=== PATIENT | male | born 1985 | race Caucasian/White ===

== ENCOUNTER 2021-09-14 11:21 | Outpatient (CLI) | payer MEDICAID, SELFPAY ==
[2021-09-16 11:08] LABS: Myeloperoxidase Ab IgG <0.2 U; Proteinase 3 Ab (PR3) <0.2 U
[2021-09-16 13:55] LABS: Angiotensin Converting Enzyme 67 U/L (16 - 85)
== END 2021-09-14 11:22 | disposition home or self-care (01) ==
LOC: LBO 11:22
PROVIDERS: PCP Otolaryngology; Visit Provider Otolaryngology
DX: J38.7 Other diseases of larynx (principal); R49.0 Dysphonia
CPT/HCPCS: 36415; 82164; 83516; 86140

== ENCOUNTER → 2021-12-08 11:54 | Outpatient (CLI) | payer MEDICAID, SELFPAY ==
--- NOTE | 2021-12-08 | DI.RAD_ITS ---
Exam(s) XR FOOT RT COMPLETE EXAM: XR FOOT RT COMPLETE CLINICAL HISTORY: 2ND METATARSAL FX-REVIEW FOR DISPLACEMENT, S92.301A. TECHNIQUE: 2D digital imaging was performed of the right foot. Three images were obtained. AP, obl ique and lateral views were obtained. COMPARISON: No exams were available for comparison FINDINGS: BONES: There is an oblique fracture through the medial aspect of the base of the 2nd metatarsal. The distal fracture is displaced 2 mm laterally. There is a question of a small fracture involving the medial aspect of the base of the 1st metatarsal. No bony destructive lesion is seen. JOINTS: No dislocation present. SOFT TISSUE: Normal. IMPRESSION: 1. Displaced oblique fracture through the medial aspect of the base of the 2nd metatarsal. 2. Question of a nondisplaced fracture involving the medial aspect of the base of the 1st metatarsal. 3. MRI may be considered for further evaluation for ligamentous injury. DATA REPOSITORY: RADIATION DOSE DELIVERED:
--- OUTSIDE RECORDS SUMMARY | 2021-12-08 11:58 | XMS_ITS | Encounter Summary ---
:1985 Author Organization [facility] Address [address] [place] [address] Care Team Providers Name Role Phone Jeanne Esparza ASSISTANT GOLF PROFESSIONAL Primary Care Provider Encounter Details Date Type Department Care Team Description 05/06/2020 Results Only [facility] - [facility] Antony Thomas, [facility] - [facility] [address] [place], [place] [id number] [place] [phone] (Wo rk) Social History Tobacco Use Types Packs/Day Years Used Date Current Every Day Smoker 1.5 12 Smokeless Tobacco: Never Used Alcohol Use Standard Drinks/Week Comments Yes 20 (1 standard drink = 0.6 oz pure alcoh ol) Sex Assigned at Date Recorded Not on file documented as of this encounter Functional Status Functional Status Response Date of Assessment Because of a physical, mental, or emotional condition, No 09/16/2015 does this person have difficulty doing errands alone such as visiting a doctor's office or shopping? Cognitive Status Response Date of Assessment Because of a physical, mental, or emotional condition, No 09/16/2015 does this person have serious difficulty concentrating, remembering, or making decisions? documented as of this encounter Plan of Treatment Upcoming Encounters Date Type Specialty Care Team Description 02/26/2022 Office Visit Urology Mp Echeverria PA -C 111 [facility] venue [facility], Madelin Adams, Level [address] [place], [place] [address] (Wo rk) documented as of this encounter Procedures Procedure Name Priority Date/Time Associated Comments Diagnosis COMPLETE BLOOD COUNT Routine 05/06/2020 5:30 Resu lts for this WITH DIFFERENTIAL EDT procedure are in (AUTO) the results section. MAGNESIUM Routine 05/06/2020 5:30 Results for this EDT procedure are i n the results section. PHENOBARBITAL Routine 05/06/2020 5:30 Results for this EDT procedure are i n the results section. COMPREHENSIVE Routine 05/06/2020 5:30 Results for this METABOLIC PANEL (CMP) EDT proced ure are in the results section. documented in this encounter Results (ABNORMAL) PHENOBARBITAL (05/06/2020 5:30 EDT) Phenobarbital 42.9 (A) 15.0 - 40.0 [facility] Comment: ug/mL MED CENTER LAB Test performed or referred by The [address] [address] Specimen Performing Organization Address City/State/ZIP Code Phon e Number [facility] [address] [place] [address] (ABNORMAL) MAGNESIUM (05/06/2020 5:30 EDT) Pathologist [facility] nature Magnesium 1.50 (L) 1.7 - 2.8 mg/dL [facility] Specimen Performing Organization Address City/[facility]/ZIP [facility] Phon e Number [facility] [address] [place] [address] (ABNORMAL) COMPREHENSIVE METABOLIC PANEL (CMP) (05/06/2020 5:30 EDT) ALBUMIN - [facility] 3.8 3.4 - 4.9 [facility] g/dL [facility] ALKALINE 75 38 - 126 U/L [facility] PHOSPHATASE - [facility] CENTER LAB BILIRUBIN TOTAL 1.2 0.2 - 1.3 [facility] mg/dL [facility] BUN - [facility] 7 (L) 10 - 26 mg/dL [facility] CALCIUM - [facility] 8.8 8.5 - 10.5 [facility] mg/dL [facility] Chloride 98 96 - 110 [facility] mmol/L [facility] CO2 Total 27 21 - 32 mEq/L [facility] CREATININE 0.67 0.66 - 1.25 [facility] mg/dL [facility] eGFR >60 [facility] Comment: MED CENTER LAB Chronic renal impairment is defined as GFR <60 Multiply result by 1.210 for patients . Anion Gap 9 0 - 18 [facility] GLUCOSE - [facility] 103 (H) 70 - 100 [facility] mg/dL [facility] Potassium 3.5 3.5 - 5.0 [facility] mEq/L [facility] Sodium 134 (L) 136 - 145 [facility] mEq/L [facility] TOTAL PROTEIN - 6.5 6.2 - 8.2 [facility] gm/dL [facility] SGOT/AST - [facility] 79 (H) 17 - 59 U/L [facility] SGPT/ALT - [facility] 36 0 - 50 U/L [facility] Specimen Performing Organization Address City/State/ZIP Code Phon e Number [facility] [address] [place] [address] (ABNORMAL) COMPLETE BLOOD COUNT WITH DIFFERENTIAL (AUTO) (05/06/2020 5:30 EDT) ABSOLUTE NEUTROPHIL 5.3 2.2 - 8.85 [facility] COUN - [facility] 10e3/uL CENTER LAB BASO # - [facility] 0.05 0.01 - 0.11 [facility] 10e/uL [place] [facility] BASO % - [facility] 1 0 - 2 % [facility] EOS # - [facility] 0.11 0.03 - 0.61 [facility] 10e3/ul [place] [facility] EOS % - [facility] 2 0 - 5 % [facility] GRAN % - [facility] 71.2 40 - 80 % [facility] HEMATOCRIT - [facility] 36.7 (L) 39.5 - 50.2 % [facility] HEMOGLOBIN - [facility] 12.8 (L) 13.8 - 17.3 [facility] g/dl [place] [facility] IG# - [facility] 0.04 0 - 0.7 10e3/uL [facility] IG% - [facility] 0.5 0 - 0.9 % [facility] LYMPH # - [facility] 0.9 (L) 1.09 - 3.3 [facility] 10e3/ul [place] [facility] LYMPH% - [facility] 12.0 (L) 20 - 40 % [facility] MEAN CORPUSCULAR HGB 35.1 (H) 27.6 - 33.0 pg [facility] ME D - [facility] CENTER LAB MEAN CORPUSCULAR HGB 34.9 32.8 - 36.4 [facility] CONC - [facility] g/dL CENTER LAB MEAN CELL VOLUME - 100.5 (H) 81 - 95 fl [facility] MONO # - [facility] 1.0 (H) 0.1 - 0.8 [facility] 10e3/uL [place] [facility] MONO% - [facility] 14.1 (H) 0 - 12 % [facility] PLATELET COUNT 107 (L) 141 - 377 [facility] 10e3/ul [place] [facility] RED BLOOD COUNT - 3.65 (L) 4.36 - 5.78 [facility] 10e6/ul [place] [facility] RED CELL DISTRI WIDTH 10.8 <14.2 % [facility] WHITE BLOOD COUNT - 7.4 4.0 - 10.4 [facility] 10e3/ul [place] [facility] Specimen Performing Organization Address City/State/ZIP Code Phon e Number [facility] [address] [place] [address] documented in this encounter Visit Diagnoses Not on filedocumented in this encounter Care Teams Dental Appliance Fixer Relationship Specialty Start Date End Date Jeanne Esparza NP PCP - General 11/28/19 [address] [place], [place] [address] documented as of this encounter
--- OUTSIDE RECORDS SUMMARY | 2021-12-08 11:58 | XMS_ITS | Encounter Summary ---
:1985 Author Organization [facility] Address [address] [place] [address] Care Team Providers Name Role Phone Jeanne Esparza NETTING WEAVER Primary Care Provider Encounter Details Date Type Department Care Team Description 05/06/2020 Lab Requisition [facility] Outr Resulting Lab, Pathology & Laboratory Provider [facility] [address] [place], [place] [address] Social History Tobacco Use Types Packs/Day Years [...] Visit Urology Mp Echeverria PA -C 111 [facility], [facility] Angie, [address] [place], [place] [address] (Wo rk) documented as of this encounter Procedures Procedure Name Priority Date/Time Associated Diagnosis Comme nts PHENOBARBITAL Routine 05/06/2020 5:30 EDT Results for this procedure are i n the results section . documented in this encounter Results (ABNORMAL) PHENOBARBITAL (05/06/2020 5:30 EDT) Pathologist Sig nature Phenobarbital 42.9 (H) 15.0 - 40.0 ug/mL [facility] Specimen Blood - Venous blood (substance) Performing Organization Address City/State/ZIP Code Phon e Number [facility] [address] [place] [address] SERVICES documented in this encounter Visit Diagnoses Not on filedocumented in this encounter Care Teams Handbook Writer Relationship Specialty Start Date End Date Jeanne Esparza NP PCP - General 11/28/19 [address] [place] [address] documented as of this encounter
--- OUTSIDE RECORDS SUMMARY | 2021-12-08 11:58 | XMS_ITS | Encounter Summary ---
:1985 Author Organization [facility] Address [address] [place] [address] Care Team Providers Name Role Phone Jeanne Esparza GUEST RELATIONS RECEPTIONIST Primary Care Provider Encounter Details Date Type Department Care Team Description 05/04/2020 Results Only [facility] Miladis Bush MD Adult Primary Care - [address] [address] [place], [place] [address] [phone] Social History Tobacco Use Types Packs/Day Years Used Date Never Assessed Sex Assigned at Date Recorded Not on [...] Visit Urology Mp Echeverria PA -C [address] [facility], Madelin Adams, [address] [place], [place] [address] (Wo rk) documented as of this encounter Procedures Procedure Name Priority Date/Time Associated Comments Diagnosis DRUGS OF ABUSE SCREEN, Routine 05/04/2020 16:15 R esults for this [facility] - [facility] EDT procedure are i n the results section. COMPLETE BLOOD COUNT Routine 05/04/2020 6:10 Resu lts for this WITH DIFFERENTIAL EDT procedure are in (AUTO) the results section. MAGNESIUM Routine 05/04/2020 6:10 Results for this EDT procedure are i n the results section. COMPREHENSIVE Routine 05/04/2020 6:10 Results for this METABOLIC PANEL (CMP) EDT proced ure are in the results section. documented in this encounter Results (ABNORMAL) DRUGS OF ABUSE SCREEN, URINE - [facility] (05/04/2020 16:15 EDT) AMPHETAMINES NEG NEG [facility] BARBITURATES,UR - POS (A) NEG [facility] BENZODIAZEPINES POS (A) NEG [facility] COCAINE,URINE - [facility] NEG NEG [facility] MAMP NEG NEG [place] (METHAMPHETAMINES - [facility] MARIJUANA,URINE - POS (A) NEG [facility] MTD (METHADONE) - NEG NEG [facility] OPIATES,URINE - [facility] NEG NEG [facility] OXY (OXYCODONE) - NEG NEG [facility] PCP (PHENCYCLIDINE) NEG NEG [place] - [facility] PROPOXYPHENE (PPX) - NEG NEG [facility] TRICYCLIC NEG NEG [place] ANTIDEPRESSANTS - Comment: [facility] Drug Class ?Cutoff Concent ration CENTER LAB Amphetamines (AMP) ?500 ng /ml Barbiturates (BAR) ?200 ng /ml Benzodiazepines (BZO) ? 150 ng/m l Cocaine (SHUKRI) ? 150 ng/ml Methamphetamine (mAMP) ?500 ng/m l Methadone (MTD) ? 200 n g/ml Opiates (OPI) ? 100 ng/ml Oxycodone (OXY) ? 100 n g/ml Phencyclidine (PCP) ?25 ng /ml Tetrahydrocannabinol (THC) ? 50 ng/ml Propoxyphene (PPX) ?300 ng /ml Tricyclic antidepressants (TCA) ? 300 ng/ml This is a screening assay only, intended for use in cl inical monitoring or management of patients. False positive o r false negative results can occur. If confirmation test ing is needed, please call the lab. Specimens are retained in the laboratory for 7 days. Specimen Performing Organization Address City/[facility]/ZIP [facility] Phon e Number [facility] [address] [place] [address] MAGNESIUM (05/04/2020 6:10 EDT) Pathologist Sig nature Magnesium 1.90 1.7 - 2.8 mg/dL [facility] Specimen Performing Organization Address [facility] Phon e Number [facility] [address] [place] [phone] (ABNORMAL) COMPREHENSIVE METABOLIC PANEL (CMP) (05/04/2020 6:10 EDT) ALBUMIN - [facility] 3.8 3.4 - 4.9 [facility] g/dL [facility] ALKALINE 75 38 - 126 U/L [facility] PHOSPHATASE [facility] BILIRUBIN TOTAL 1.6 (H) 0.2 - 1.3 [facility] mg/dL [facility] BUN - [facility] 4 (L) 10 - 26 mg/dL [facility] CALCIUM - [facility] 8.7 8.5 - 10.5 [facility] mg/dL [facility] Chloride 102 96 - 110 [facility] mmol/L [facility] CO2 Total 28 21 - 32 mEq/L [facility] CREATININE 0.76 0.66 - 1.25 [facility] mg/dL [facility] eGFR >60 [facility] Comment: [facility] LAB Chronic renal impairment is defined as GFR <60 Multiply result by 1.210 for patients . Anion Gap 7 0 - 18 [facility] GLUCOSE - [facility] 83 70 - 100 [facility] mg/dL [facility] Potassium 3.6 3.5 - 5.0 [facility] mEq/L [facility] Sodium 137 136 - 145 [facility] mEq/L [facility] TOTAL PROTEIN - 6.5 6.2 - 8.2 [facility] gm/dL [facility] SGOT/AST - [facility] 74 (H) 17 - 59 U/L [facility] SGPT/ALT - [facility] 44 0 - 50 U/L [facility] Specimen Performing Organization Address City/State/ZIP Code Phon e Number [facility] [address] [place] [address] (ABNORMAL) COMPLETE BLOOD COUNT WITH DIFFERENTIAL (AUTO) (05/04/2020 6:10 EDT) ABSOLUTE NEUTROPHIL 5.5 2.2 - 8.85 [facility] COUN - [facility] 10e3/uL CENTER LAB BASO # - [facility] 0.05 0.01 - 0.11 [facility] 10e/uL [place] [facility] BASO % - [facility] 1 0 - 2 % [facility] EOS # - [facility] 0.05 0.03 - 0.61 [facility] 10e3/ul [place] [facility] EOS % - [facility] 1 0 - 5 % [facility] GRAN % - [facility] 74.6 40 - 80 % [facility] HEMATOCRIT - [facility] 37.3 (L) 39.5 - 50.2 % [facility] HEMOGLOBIN - [facility] 12.7 (L) 13.8 - 17.3 [facility] g/dl [place] [facility] IG# - [facility] 0.05 0 - 0.7 10e3/uL [facility] IG% - [facility] 0.7 0 - 0.9 % [facility] LYMPH # - [facility] 0.8 (L) 1.09 - 3.3 [facility] 10e3/ul [place] [facility] LYMPH% - [facility] 11.3 (L) 20 - 40 % [facility] MEAN CORPUSCULAR HGB 34.8 (H) 27.6 - 33.0 pg [facility] ME D - [facility] CENTER LAB MEAN CORPUSCULAR HGB 34.0 32.8 - 36.4 [facility] CONC - [facility] g/dL CENTER LAB MEAN CELL VOLUME - 102.2 (H) 81 - 95 fl [facility] MONO # - [facility] 0.9 (H) 0.1 - 0.8 [facility] 10e3/uL [place] [facility] MONO% - [facility] 12.0 0 - 12 % [facility] PLATELET COUNT 97 (L) 141 - 377 [facility] 10e3/ul [place] [facility] RED BLOOD COUNT - 3.65 (L) 4.36 - 5.78 [facility] 10e6/ul [place] [facility] RED CELL DISTRI WIDTH 11.5 <14.2 % [facility] WHITE BLOOD COUNT - 7.4 4.0 - 10.4 [facility] 10e3/ul [place] [facility] Specimen Performing Organization Address City/State/[facility] Code Phon e Number [facility] [address] [place] [address] documented in this encounter Visit Diagnoses Not on filedocumented in this encounter Care Teams Pot Washer Relationship Specialty Start Date End Date Jeanne Esparza NP PCP - General 11/28/19 [address] [place] [address] documented as of this encounter
--- OUTSIDE RECORDS SUMMARY | 2021-12-08 11:58 | XMS_ITS | Encounter Summary ---
:1985 Author Organization [facility] Address [address] [place] [address] Care Team Providers Name Role Phone Jeanne Esparza RAILCAR SWITCHMAN Primary Care Provider Encounter Details Date Type Department Care Team Description 05/06/2020 Results Only Imaging [facility] - Aamir Thomas rt [facility] Cardiology Clin ic MD Vikas [address] [place] [address] [place], [place] [phone] (Wo rk) Social History Tobacco Use [...] Visit Urology Mp Echeverria PA -C 111 [facility], [facility], Level [address] [place], [place] [address] (Wo rk) documented as of this encounter Procedures Procedure Name Priority Date/Time Associated Diagnosis Comme nts EKG 12-LEAD 05/06/2020 7:47 EDT Results for this procedure are i n the results section . EKG 12-LEAD 05/06/2020 5:13 EDT Results for this procedure are i n the results section . documented in this encounter Results EKG 12-LEAD (05/06/2020 7:47 EDT) Specimen Narrative [facility] - 021 7:47 EDT ? [facility] ? Test Date: ?2020-05-06 07:47:30 Pat Name: ? TONE VILLARREAL ?Department: ?Room: ? 301 Gender: ? M ?Regulatory Compliance Manager: ?? TIB : ?1985 ? Requested By: Order Number: ?Reading MD: ?? Francis Villeda MD ? Measurements Intervals ?[place] ? Rate: ? 73 ? P: ?77 TX: ? 168 ?QRS: ?82 QRSD: ? 78 ? T: ?73 QT: ? 408 ? QTc: ?449 ? Interpretive Statements Normal sinus rhythm ST elevation, probably due to early repo larization or pericarditis. Borderline ECG Compared to ECG 05/06/2020 05:13:20 No significant changes Electronically Signed On 05-06-2020 14:42 :47 EDT by Francis Villeda MD [email or web address] Procedure Note Francis Villeda MD - 05/06/2020 [facility] Test Date: 2020-05-06 07:47:30 Pat Name: TONE VILLARREAL Department: Room: 301 Gender: M Regulatory Compliance Manager: JUAN : 1985 Requested By: Order Number: Reading MD: Francis Villeda MD Measurements Intervals [place] Rate: 73 P: 77 TX: 168 QRS: 82 QRSD: 78 T: 73 QT: 408 QTc: 449 Interpretive Statements Normal sinus rhythm ST elevation, probably due to early repo larization or pericarditis. Borderline ECG Compared to ECG 05/06/2020 05:13:20 No significant changes Electronically Signed On 05-06-2020 14:42 :47 EDT by Francis Villeda MD [email or web address] Performing Organization Address [facility]/State/ZIP Code Phon e Number [facility] [address] [place] [address] EKG 12-LEAD (05/06/2020 5:13 EDT) Specimen Narrative [facility] - 021 5:13 EDT ? [facility] ? Test Date: ?2020-05-06 05:13:20 Pat Name: ? TONE VILLARREAL ?Department: ?Room: ? 301 Gender: ? M ?Regulatory Compliance Manager: ?? SANA : ?1985 ? Requested By: Order Number: ?Reading : ?? Francis Villeda MD ? Measurements Intervals ?[place] ? Rate: ? 68 ? P: ?59 TX: ? 172 ?QRS: ?78 QRSD: ? 88 ? T: ?70 QT: ? 414 ? QTc: ?440 ? Interpretive Statements Normal sinus rhythm Early repolarization Normal ECG No previous ECG available for comparison Electronically Signed On 05-06-2020 9:57: 42 EDT by Francis Villeda MD [email or web address] Procedure Note Francis Villeda MD - 05/06/2020 [facility] Test Date: 2020-05-06 05:13:20 Pat Name: TONE VILLARREAL Department: Room: 301 Gender: M Regulatory Compliance Manager: SANA : 1985 Requested By: Order Number: Reading MD: Francis Villeda MD Measurements Intervals [place] Rate: 68 P: 59 TX: 172 QRS: 78 QRSD: 88 T: 70 QT: 414 QTc: 440 Interpretive Statements Normal sinus rhythm Early repolarization Normal ECG No previous ECG available for comparison Electronically Signed On 05-06-2020 9:57: 42 EDT by Francis Villeda MD [email or web address] Performing Organization Address City/State/ZIP Code Phon e Number [facility] [address] [place] [address] documented in this encounter Visit Diagnoses Not on filedocumented in this encounter Care Teams Oil And Gas Principal Relationship Specialty Start Date End Date Jeanne Esparza NP PCP - General 11/28/19 30 [place], [place] [id number] documented as of this encounter
--- OUTSIDE RECORDS SUMMARY | 2021-12-08 11:58 | XMS_ITS | Encounter Summary ---
:[address] [facility] Address [address] [place] [address] Care Team Providers Name Role Phone Jeanne Esparza VP TALENT MANAGEMENT Primary Care Provider Encounter Details Date Type Department Care Team Description 05/05/2020 Lab Requisition [facility] Outr Resulting Lab, Pathology & Laboratory Provider [facility] [address], [place] [address] Social History Tobacco Use Types Packs/Day Years [...] Echeverria PA -C [address] [facility], [facility] Angie, [address] [place], [place] [address] (Wo rk) documented as of this encounter Procedures Procedure Name Priority Date/Time Associated Diagnosis Comme nts PHENOBARBITAL Routine 05/05/2020 8:52 EDT Results for this procedure are i n the results section . documented in this encounter Results (ABNORMAL) PHENOBARBITAL (05/05/2020 8:52 EDT) Pathologist Sig nature Phenobarbital 45.5 (HH) 15.0 - 40.0 ug/mL [facility] Specimen Blood - Venous blood (substance) Performing Organization Address City/State/ZIP Code Phon e Number [facility] [address] [place] [address] SERVICES documented in this encounter Visit Diagnoses Not on filedocumented in this encounter Care Teams Millwright Helper Relationship Specialty Start Date End Date Jeanne Esparza NP PCP - General 11/28/19 [address] [place] [address] documented as of this encounter
--- OUTSIDE RECORDS SUMMARY | 2021-12-08 11:58 | XMS_ITS | Encounter Summary ---
:1985 Author Organization [facility] Address [address] [place] [address] Care Team Providers Name Role Phone Jeanne Esparza UX VISUAL DESIGNER Primary Care Provider Reason for Referral Consult (Routine/Next Available) - Closed Specialty Diagnoses / Procedures Referred By Contact Refer red To Contact Otolaryngology Diagnoses Laryngitis Gabe Chin, UX VISUAL DESIGNER [facility] [address] [place] [address] [address] [place] [address] [place] [address] Referral ID Status Reason Start Date Expiration Date Visits V isits Requested Authorized [id number] Closed Specialty 08/01/2021 1 1 Services Required Question Answer Reason for Request: Other Please specify: Evaluation and management Comments Patient presented to express care with a 9-day history of sore throat. 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 Would like him evaluated to rule out other vocal cord dysfunction s and possible nodule on his vocal cord. Reason for Visit Reason Comments Sore Throat Encounter Details Date Type Department Care Team Description 08/01/2021 Office Visit [facility] Acute Respiratory Gabe Chin La ryngitis (Primary Clinic UX VISUAL DESIGNER Dx) [address] [place] [address] [address] [place] [address] [address] [phone] [place], [place] [address] Social History Tobacco Use Types Packs/Day Years Used Date Current Every Day Smoker 1.5 12 Smokeless Tobacco: Never Used Alcohol Use Standard Drinks/Week Comments Not Currently 0 (1 standard drink = 0.6 oz pure alcoho l) one year sober Alcohol Habits Answer Date Recorded How often do you have a drink containing alcohol? Not asked How many drinks containing alcohol do you have on a Not aske d typical day when you are drinking? How often do you have six or more drinks on one Not asked occasion? Comment: one year sober 05/23/2021 Sex Assigned at Date Recorded Not on file documented as of this encounter Last Filed Vital Signs Vital Sign Reading Time Taken Comments Blood Pressure 102/62 08/01/2021 0944 EDT Pulse 67 08/01/2021 0944 EDT Temperature 36.7 ??C (98.1 ??F) 08/01/2021 0944 EDT Respiratory Rate 16 08/01/2021 0944 EDT Oxygen Saturation 100% 08/01/2021 0944 EDT Inhaled Oxygen Concentration - - Weight - - Height - - Body Mass Index - - documented in this encounter Functional Status Functional Status Response [...] making decisions? documented as of this encounter Patient Instructions Patient InstructionsGabe Chin NP - 08/01/2021 10:00 EDT Images from the original note were not included. Thank you for visiting [facility] in [place], [place] You were seen for a sore throat. There is no signs of an infection on your exam. As discussed at your visit I suspect you have a laryngitis. Plan of care as outlined below: -Supportive measures as below. I would decrease or stop smoking during the duration of your symptoms. -A referral has been placed to ENT for you. Singers are predisposed to certain conditions such as nodules on the vocal cords that can cause your symptoms. -As discussed at your visit, oral steroids are no longer indicated for the treatment of laryngitis. This can actually cause further damage to the vocal cords. Labs: If we collected any blood work from you, this can take up to 3 days to process. We generally only call if lab results are abnormal (No news is good news.). Consider signing up for [employer] for direct access to your lab results. We no longer routinely call for negative COVID-19 results. Radiology: If imaging was ordered for you to obtain after the visit, please call [facility] Radiology Scheduling at [phone] (Select Option 1). General follow-up: Please follow-up with your Primary Care Provider, [facility] Care, or the Emergency Department if you are not improving or symptoms are worsening after your visit. Nominate a Healthcare Provider who has provided you with EXCEPTIONAL care: [email or web address] MyChart Sign-Up: [email or web address] Patient Instructions Laryngitis: Care Instructions Your Care Instructions Laryngitis is an inflammation of the voice box (larynx) that causes your voice to become raspy or hoarse. Most of the time, laryngitis comes on quickly and lasts as long as 2 weeks. It is caused by overuse, irritation, or infection of the vocal cords inside the larynx. Some of the most common causes are a cold, the flu, or allergies. Loud talking, shouting, cheering, or singing also can cause laryngitis. Stomach acid that backs up into the throat also can make you lose your voice. Resting your voice and taking other steps at home can help you get your voice back. Follow-up care is a hamlin part of your treatment and safety. Be sure to make and go to all appointments, and call your doctor if you are having problems. It's also a good idea to know your test results and keep a list of the medicines you take. How can you care for yourself at home? ?? Rest your voice. You do not have to stop speaking, but use your voice as little as possible. Speak softly but do not whisper; whispering can bother your larynx more than speaking softly. Avoid talking on the telephone or trying to speak loudly. ?? Drink plenty of water to keep your throat moist. ?? Before you use cough and cold medicines, check the label. They may not be safe for young childrenor for people with certain health problems. ?? Try to keep stomach acid from backing up into your throat. Do not eat just before bedtime. Reducethe amount of coffee and alcohol you drink, and eat healthy foods. Taking lyoq-mld-giiupet acid reducers can help when these steps are not enough. In some cases, you may need prescription medicine. ?? Try not to clear your throat. This can cause more irritation of your larynx. Take an pgnm-puh-kfsjukc cough suppressant (if your doctor recommends it) if you have a dry cough that does not produce mucus. ?? Use saline (saltwater) nasal washes to help keep your nasal passages open and wash out mucus and bacteria. You can buy saline nose drops at a grocery store or drugstore. Or, you can make your own athome by mixing ?? teaspoon salt, 1 cup water (at room temperature), and ?? teaspoon baking soda. If you make your own, fill a bulb syringe with the solution, insert the tip into your nostril, and squeeze gently. Blow your nose. ?? Follow your doctor's directions for treating the condition that caused you to lose your voice. Ifyour doctor prescribed antibiotics, take them as directed. Do not stop taking them just because you feel better. You need to take the full course of antibiotics. ?? Do not smoke or allow others to smoke around you. If you need help quitting, talk to your doctor about stop-smoking programs and medicines. These can increase your chances of quitting for good. When should you call for help? Call 911 anytime you think you may need emergency care. For example, call if: ? You have trouble breathing. Call your doctor now or seek immediate medical care if: ? You have new or worse pain. ? You have trouble swallowing. Watch closely for changes in your health, and be sure to contact your doctor if: ? You do not get better as expected. Where can you learn more? Go to https://www.healthCrisp.net/uvTerraplay Systemsealth or log into your [employer] account at https://agámi Systems.Collect.org Enter A905 in the search box to learn more about Laryngitis: Care Instructions. Current as of: October 29, 2020?Content Version: 13.2 ?? [employer]shine. Care instructions adapted under license by [facility]. If you have questions about a medical condition or this instruction, always ask your healthcare professional. [employer] disclaims any warranty or liability for your use of this information. documented in this encounter Progress Notes Gabe Chin NP - 08/01/2021 1000 EDT [facility] Express Care Chief Complaint(s): Sore Throat HPI: Shelley Villarreal is a 36 y.o. year-old male who presents to Express Care for for 9- day history of throat soreness. 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 He has been having difficulty with reaching high notes. 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 Symptoms are most pronounced after he finishes his singing gigs. He is concerned about possible strep or laryngitis. He has no recent history of either. He has not had his tonsils removed. He has not done anything specific to treat his symptoms. He has never been treated by ENT. He has no other symptoms. I have reviewed current problem list and current medications. ROS: No fever, chills, chest pain, shortness of breath, abdominal pain, rashes. Social History Tobacco Use ??? Smoking status: Current Every Day Smoker Packs/day: 1.50 Years: 12.00 Pack years: 18.00 ??? Smokeless tobacco: Never Used Substance Use Topics ??? Alcohol use: Not Currently Comment: one year sober History obtained from patient, unless otherwise noted. Objective: Examination: Vitals: BP 102/62 (BP Cuff Location: Left arm, BP Patient Position: Sitting, BP Cuff Sizes: Adult, regular) Pulse 67 Temp 36.7 ??C (98.1 ??F) (Oral) Resp 16 SpO2 100% There is no height or weight on file to calculate BMI. Physical Exam Gen: No acute distress. Pleasant. Sitting on exam table reading about opioids. Cardiac: S1/S2, no murmurs rubs or gallops, regular rate Pulmonary: Normal work of breathing, clear to auscultation bilaterally in all lung thomas, voice sounds hoarse HEENT: NC/AT, [place], conjunctiva not injected, sclera not injected, right ear: Normal (TM intact, not injected, no effusion), left ear: Normal (TM intact, not injected, no effusion), uvula midline, posterior oral pharynx mildly erythematous but not edematous, tonsils 1+???no exudate, tongue clear, no abnormal drainage from ears, eyes, nose, neck supple, no LAD Skin: [place] warm and dry Data reviewed with patient (past results): Reviewed active problem list, allergies, chart review forprevious visits pertinent to this 1. Assessment/ Plan: 36 y.o. year-old male with sore throat for the last 9 days. I primarily suspect a laryngitis. There is no focal source of infection identified and given focal nature of symptoms there is a low index ofsuspicion for an infectious process. DDx: Vocal cord dysfunction, nodules on the vocal cords??? these cannot be ruled out at this visit. Referral placed to ENT. Discussed with patient symptom management to include resting his voice, staying hydrated, drinking warm tea or water with honey, throat lozenges. Plan of care as outlined below and in AVS. Patient verbalized agreement and understanding of plan ofcare. Diagnoses and all orders for this visit: Laryngitis - Amb Consult/Follow Up ENT; Future Patient education: Discussed with patient during visit and provided in AVS as applicable. Follow-up: RTC, PCP, or ED if symptoms do not improve and patient is concerned. This note was prepared using voice recognition software and the EMR. There may be inadvertent errorsand omissions. Chica Gonzalez - 08/01/2021 1000 EDT CC/HPI: Patient presents with sore throat x 9 days. 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 Covid Screening: In the last 72 hours, has the patient had: New or unusual cough, shortness of breath, new nasal congestion, sore throat, fever, chills, body aches, or new loss of taste or smell without a reasonable alternative diagnosis*? (If yes, assign to ARC) In the past 10 days, has the patient had a positive Covid test OR a confirmed close Covid exposure (<6ft for > 15mins in 24hr period)? (if yes, assign to ARC, regardless of vaccination status) NO Is the patient fully Covid vaccinated? Approximate date of last dose? Had Covid 1 month ago. *may be determined by RN or in discussion with available provider (FLOTATION OPERATOR's and CCA's can defer to Charge Nurse to complete triage when appropriate) PCP: Jeanne Esparza documented in this encounter Plan of Treatment Upcoming Encounters Date Type Specialty Care Team Description 02/26/2022 Office Visit Urology Mp Echeverria PA -C [address] [place] [address], [facility] [address] [place], [place] [address] (Wo rk) Scheduled Orders Name Type Priority Associated Diagnoses Order S chedule POCT RAPID STREP Point of Care Routine Laryngitis Ordered: 0 08/01/2021 SCREEN Testing Scheduled Referrals Name Type Priority Associated Order Schedule Diagnoses AMB Outpatient Referral Routine/Next Laryngitis Expected : CONS/FOLLOW Available 08/31/2021 UP E[facility] (Approximate), Expires: 08/01/2022 documented as of this encounter Visit Diagnoses Diagnosis Laryngitis - Primary Acute laryngitis, without mention of obs truction documented in this encounter Historical Medications This list may reflect changes made after this encounter. Medication Sig Dispensed Refills Start Date End Date Multivitamins with Minerals Take 1 Tablet by 0 tablet tablet mouth daily. sildenafiL (REVATIO) 20 mg TAKE 1 TO 5 TABLETS 0 07/13/2021 tablet BY MOUTH 30 MINUTES PRIOR TO NEED. MAXIMUM DAILY DOSE IS 3 TABLETS IN 24 HOURS added in this encounter Care Teams Manufacturing Recruiter Relationship Specialty Start Date End Date Jeanne Esparza NP PCP - General 11/28/19 [address] [place] [address] documented as of this encounter
--- OUTSIDE RECORDS SUMMARY | 2021-12-08 11:58 | XMS_ITS | Encounter Summary ---
:1985 Author Organization [facility] Address [address] [place] [address] Care Team Providers Name Role Phone Jeanne Esparza INSURANCE DEFENSE PARALEGAL Primary Care Provider Encounter Details Date Type Department Care Team Description 05/07/2020 Results Only [facility] - [facility] Antony Thomas, [facility] - [facility] [address] [place], [place] [address] [place] [phone] (Wo rk) Social History Tobacco Use [...] Visit Urology Mp Echeverria PA -C [address] [facility] venue [facility], Madelin Adams, [address] [place], [place] [address] (Wo rk) documented as of this encounter Procedures Procedure Name Priority Date/Time Associated Comments Diagnosis COMPLETE BLOOD COUNT Routine 05/07/2020 6:20 Resu lts for this WITH DIFFERENTIAL EDT procedure are in (AUTO) the results section. MAGNESIUM Routine 05/07/2020 6:20 Results for this EDT procedure are i n the results section. BASIC METABOLIC PANEL Routine 05/07/2020 6:20 Res ults for this (BMP) EDT procedure are i n the results section. documented in this encounter Results (ABNORMAL) COMPLETE BLOOD COUNT WITH DIFFERENTIAL (AUTO) (05/07/2020 6:20 EDT) ABSOLUTE NEUTROPHIL 3.2 2.2 - 8.85 [facility] COUN - [facility] 10e3/uL [facility] BASO # - [facility] 0.05 0.01 - 0.11 [facility] 10e/uL [facility] BASO % - [facility] 1 0 - 2 % [facility] EOS # - [facility] 0.09 0.03 - 0.61 [facility] 10e3/ul [facility] EOS % - [facility] 2 0 - 5 % [facility] GRAN % - [facility] 57.1 40 - 80 % [facility] HEMATOCRIT - [facility] 37.1 (L) 39.5 - 50.2 % [facility] HEMOGLOBIN - [facility] 12.6 (L) 13.8 - 17.3 [facility] g/dl [facility] IG# - [facility] 0.05 0 - 0.7 10e3/uL [facility] IG% - [facility] 0.9 0 - 0.9 % [facility] LYMPH # - [facility] 1.1 1.09 - 3.3 [facility] 10e3/ul [facility] LYMPH% - [facility] 20.2 20 - 40 % [facility] MEAN CORPUSCULAR HGB 34.2 (H) 27.6 - 33.0 pg [facility] ME D - [facility] CENTER [facility] MEAN CORPUSCULAR HGB 34.0 32.8 - 36.4 [facility] CONC - [facility] g/dL [facility] MEAN CELL VOLUME - 100.8 (H) 81 - 95 fl [facility] MONO # - [facility] 1.1 (H) 0.1 - 0.8 [facility] 10e3/uL [facility] MONO% - [facility] 19.3 (H) 0 - 12 % [facility] PLATELET COUNT 137 (L) 141 - 377 [facility] 10e3/ul [facility] RED BLOOD COUNT - 3.68 (L) 4.36 - 5.78 [facility] 10e6/ul [facility] RED CELL DISTRI WIDTH 11.0 <14.2 % [facility] LAB WHITE BLOOD COUNT - 5.6 4.0 - 10.4 [facility] 10e3/ul [facility]ENTER LAB Specimen Performing Organization Address City/[facility]/ZIP Code Phon e Number [facility] [address] [place] [address] MAGNESIUM (05/07/2020 6:20 EDT) Pathologist Sig nature Magnesium 1.70 1.7 - 2.8 mg/dL [facility] R LAB Specimen Performing Organization Address [facility] Phon e Number [facility] [address] [place] [address] (ABNORMAL) BASIC METABOLIC PANEL (BMP) (05/07/2020 6:20 EDT) BUN - [facility] 5 (L) 10 - 26 mg/dL [facility] CALCIUM - [facility] 8.8 8.5 - 10.5 [facility] mg/dL [facility] Chloride 99 96 - 110 [facility] mmol/L [facility] CO2 Total 28 21 - 32 mEq/L [facility] CREATININE 0.73 0.66 - 1.25 [facility] mg/dL [facility] eGFR >60 [facility] Comment: [facility] Chronic renal impairment is defined as GFR <60 Multiply result by 1.210 for patients . Anion Gap 7 0 - 18 [facility] GLUCOSE - [facility] 90 70 - 100 mg/dL [facility] Potassium 3.7 3.5 - 5.0 [facility] mEq/L [facility] Sodium 134 (L) 136 - 145 [facility] mEq/L [facility] LAB Specimen Performing Organization Address City/[facility] Phon e Number [facility] [address] [place] [address] documented in this encounter Visit Diagnoses Not on filedocumented in this encounter Care Teams Fig Washer Relationship Specialty Start Date End Date Jeanne Esparza NP PCP - General 11/28/19 [address] [place] [address] documented as of this encounter
--- OUTSIDE RECORDS SUMMARY | 2021-12-08 11:58 | XMS_ITS | Encounter Summary ---
:1985 Author Organization [facility] Address [address] [place] [address] Care Team Providers Name Role Phone Jeanne Esparza AIRPLANE COVER MAKER Primary Care Provider Reason for Visit Reason Onset Date Comments COVID-19 08/07/2021 Encounter Details Date Type Department Care Team Description 08/07/2021 Telephone UVN [facility] Lencho Renee MD COVID-[address] [place] [address] [place] [phone] (Wo rk) Social History Tobacco Use Types [...] making decisions? documented as of this encounter Miscellaneous Notes Telephone Encounter - Sara Stacy - 08/07/2021 1640 EDT COVID TEST REQUIRED Please order COVID test for this patient INTERNAL ORDER TO [facility] ANTERIOR NARES Patient advised to go to [facility] lab 3 days prior to their appointment with ENT. Date patient needs to have COVID test done: 09/19/21 Appt Reason: Laryngitis Appt Date 09/23/[address] Sotelo Notified patient of the need to Quarantine once test is complete until the appointment Patient confirmed to quarantine and call if any sx's documented in this encounter Plan of Treatment Upcoming Encounters Date Type Specialty Care Team Description 02/26/2022 Office Visit Urology Mp Echeverria PA -C [address] [facility], [facility], [address] [place], [place] [phone] (Wo rk) documented as of this encounter Results COVID-19 TESTING (09/19/2021 10:06 EDT) COVID-19 rt-PCR Negative Negative [facility] Result Comment: [facility] This test has not been FDA c leared or approved. This test has been authorized by FDA under an EUA for use by authorized laboratories. This test has been authorized only for detection of nucleic acid fro m 2019-nCoV, not for any oth er viruses or pathogens. This test is only authorized for the duration of the declaration that circumstances exist justifying the authorization of emergency use of in vitro d iagnostic tests for detectio n and/or diagnosis of 2019-nCoV under section 564(b)(1) of Act, 21 U.S.C ?? 360bbb-3(b) (1), unless the authorization is terminated or revoked sooner. Performed on the [employer] GeneXpert Instrument The 2019 novel coronavirus (SARS-CoV-2) target nucleic acids are not detected. Performing Lab Cepheid GeneXpert [facility] Specimen Swab - Anterior nares Performing Organization Address City/State/ZIP Code Phon e Number [facility] [address] [place] [address] documented in this encounter Visit Diagnoses Diagnosis Pre-procedure lab exam - Primary Pre-procedural laboratory examination documented in this encounter Care Teams Senior Benefits Manager Relationship Specialty Start Date End Date Jeanne Esparza NP PCP - General 11/28/19 [address] [place] [address] documented as of this encounter
--- OUTSIDE RECORDS SUMMARY | 2021-12-08 11:58 | XMS_ITS | Encounter Summary ---
:1985 Author Organization [facility] Address [address] [place] [address] Care Team Providers Name Role Phone Jeanne Esparza LAUNDRY AGENT Primary Care Provider Reason for Visit Reason Comments Constipation pt reports i feel like im i ncredibly constipated. it started 2 weeks ago and its getting to the p oint i didnt know what to do anymore has not tried any medications at home. Encounter Details Date Type Department Care Team Description 05/23/2021 Emergency [facility] - Tim Strickland MD Constipation, [facility] Emergency [address] [facility] unspecified constipation Department [place], [place] type (Primary Dx) [address] [facility] [address] [place] [address] [phone] Social History Tobacco Use Types Packs/Day Years [...] Sign Reading Time Taken Comments Blood Pressure 137/85 05/23/2021 0825 EDT Pulse 82 05/23/2021 0825 EDT Temperature - - Respiratory Rate 18 05/23/2021 0825 EDT Oxygen Saturation 100% 05/23/2021 0825 EDT Inhaled Oxygen Concentration - - Weight 70.3 kg (155 lb) 05/23/2021 08 EDT Height 193 cm (6' 4) 05/23/2021820 EDT Body Mass Index 18.87 05/23/2021 08 EDT documented in this encounter Functional Status Functional [...] making decisions? documented as of this encounter Discharge Instructions InstructionsMoNir gomez MD - 05/23/2021 You were seen in the ED for constipation and rectal pain. Drink one half the bottle of magnesium citrate when you return home. If you do not have a bowel movement within 2 hours finish the bottle. Then take MiraLAX 17 g daily to keep your stools soft so your rectal area can heal. Follow-up with your PCP in about 1 week. Return to the emergency department for any worsening symptoms. AttachmentsThe following attachments cannot be sent through Care Everywhere. Constipation (Uzbek)documented in this encounter Discharge Disposition Disposition Code Departure Means Destination Home or Self Retirement documented in this encounter ED Notes Nir Strickland MD - 05/23/2021 1008 EDT Emergency Department Visit Assessment and ED Course 35-year-old male presents to the ED concerned for constipation and rectal pain. On exam he has no significant abdominal pain or tenderness. Rectal exam without any external evidence of the source of pain such as perianal abscess, fissure or hemorrhoids. He does have considerable pain with digital rectal exam so a fissure is possible but he would not tolerate anoscopy at this time. Abdominal x-rays show moderate stool burden, most of which is more proximal than would be likely to be helped by an enema. Patient was discharged home with a bottle of magnesium citrate. Stressed the importance of keepinghis stool soft using daily MiraLAX after this. He will follow up with his PCP. Final diagnoses: Constipation, unspecified constipation type Disposition: Discharged Chief complaint: constipation and rectal pain HPI Shelley Villarreal is a 35 y.o. male who presents to the ED for constipation and rectal pain. For about 2weeks the patient has felt like he is not having regular bowel movements. He can sometimes pass small amounts of stool but does not think he is completely emptying. He is having increasingly severe rectal and anal pain, especially when he tries to have a bowel movement. He has not had any blood in hisstools. No fever. Has not taken any stool softeners or laxatives at home. Occasional lower abdominalpain. No vomiting. History was provided by: Patient Patient's pertinent PMH, FH, SH were reviewed and edited as necessary. Review of Systems Constitutional: Negative for chills and fever. HENT: Negative for congestion. Eyes: Negative for redness. Respiratory: Negative for shortness of breath. Cardiovascular: Negative for chest pain. Gastrointestinal: Positive for constipation. Negative for abdominal pain, nausea and vomiting. Genitourinary: Negative for dysuria. Musculoskeletal: Negative for neck pain. Skin: Negative for rash. Neurological: Negative for speech change. Psychiatric/Behavioral: Negative for hallucinations. Physical Exam BP 137/85 Pulse 82 Resp 18 Ht (!) 193 cm (76) Wt 70.3 kg (155 lb) SpO2 100% BMI 18.87 kg/m?? A medical screening exam was performed. Physical Exam Vitals and nursing note reviewed. Constitutional: General: He is not in acute distress. Appearance: He is well-developed and well-nourished. HENT: Nose: Nose normal. No nasal discharge. Mouth/Throat: Mouth: Mucous membranes are moist. Pharynx: Oropharynx is clear. Eyes: Extraocular Movements: EOM normal. Conjunctiva/sclera: Conjunctivae normal. Pupils: Pupils are equal, round, and reactive to light. Cardiovascular: Rate and Rhythm: Normal rate and regular rhythm. Heart sounds: Normal heart sounds. Pulmonary: Effort: Pulmonary effort is normal. No respiratory distress. Breath sounds: Normal breath sounds. Abdominal: General: Bowel sounds are normal. Palpations: Abdomen is soft. Tenderness: There is no abdominal tenderness. Comments: Rectal exam with no external hemorrhoids, anal fissure or areas of swelling/redness. Digital exam with no palpable stool in the rectal vault and no blood. Considerable pain with digital rectal exam. Musculoskeletal: General: Normal range of motion. Cervical back: Normal range of motion and neck supple. Skin: General: Skin is warm and dry. Neurological: Mental Status: He is alert and oriented to person, place, and time. Cranial Nerves: No cranial nerve deficit. Psychiatric: Mood and Affect: Mood and affect normal. Imaging obtained was reviewed and independently interpreted. Procedures Procedures documented in this encounter Plan of Treatment Upcoming Encounters Date Type Specialty Care Team Description 02/26/2022 Office Visit Urology Mp Echeverria PA -C [address] [facility] [place], [address] [place], [place] [address] (Wo rk) documented as of this encounter Procedures Procedure Name Priority Date/Time Associated Diagnosis Comme nts XR ABDOMEN 2 VIEWS STAT 05/23/2021 9:30 EDT Re sults for this procedure are i n the results section. documented in this encounter Results XR ABDOMEN 2 VIEWS (05/23/2021 9:30 EDT) Anatomical Region Laterality Modality Body Radio Fluoroscopy Specimen Impressions [facility] - 05/23/2021 9:44 EDT Moderate constipation. THIS DOCUMENT HAS BEEN ELECTRONICALLY SI GNED BY CHANNING MEJIA MD FOR ANY QUESTIONS OR CONCERNS REGARDING THIS REPORT PLEASE CALL [facility] AT [phone] [facility] - 05/23/2021 9:44 EDT PROCEDURE INFORMATION: Exam: XR Abdomen Exam date and time: 05/23/2021 9:18 AM Age: 35 years old Clinical indication: Constipation TECHNIQUE: Imaging protocol: XR of the abdomen. Views: 2 Views. Upright and supine views . COMPARISON: CR CHEST-SINGLE VIEW 03/05/2020 17:51 FINDINGS: Gastrointestinal tract: No small bowel d ilatation is present. There is a relatively large amount of ga s and fecal material throughout the colon. Intraperitoneal space: Normal. No free a ir. Bones/joints: Unremarkable for age. Other findings: There is no soft tissue mass or abnormal calcification. Procedure Note Channing Mejia MD - 05/23/2021 PROCEDURE INFORMATION: Exam: XR Abdomen Exam date and time: 05/23/2021 9:18 AM Age: 35 years old Clinical indication: Constipation TECHNIQUE: Imaging protocol: XR of the abdomen. Views: 2 Views. Upright and supine views . COMPARISON: CR CHEST-SINGLE VIEW 03/05/2020 17:51 FINDINGS: Gastrointestinal tract: No small bowel d ilatation is present. There is a relatively large amount of ga s and fecal material throughout the colon. Intraperitoneal space: Normal. No free a ir. Bones/joints: Unremarkable for age. Other findings: There is no soft tissue mass or abnormal calcification. IMPRESSION Moderate constipation. THIS DOCUMENT HAS BEEN ELECTRONICALLY SI GNED BY CHANNING MEJIA MD FOR ANY QUESTIONS OR CONCERNS REGARDING THIS REPORT PLEASE CALL [facility] AT [phone] Performing Organization Address City/State/ZIP Code Phon e Number [facility] documented in this encounter Visit Diagnoses Diagnosis Constipation, unspecified constipation t ype - Primary documented in this encounter Administered Medications Inactive Administered Medications - up to 3 most recent administrations Medication Order MAR Action Action Date Dose Rate Site magnesium citrate solution 296 mL Given 05/23/2021 10:07 EDT 296 mL 296 mL, oral, Once (NO Time Specified), 1 dose, Starting on 05/23/21 at 0953, Until 05/23/21 at 1007, Routine documented in this encounter Discontinued Medications Medication Sig Discontinue Reason Start Date End Date diazePAM (VALIUM) 10 mg Take 1 Tab by mouth 2 times daily. Day one and 2- 10 mg every 6 hours 05/09/2016 05/23/2021 tablet Day 3 and 4- 10 mg every 8 hours Day 5 and 6-10 mg twice a day Daily Max: 20 mg betamethasone Apply twice daily 12/10/2019 2 dipropionate 0.05 % for 2 weeks. Apply cream to penis in area of foreskin narrowing documented as of this encounter Active and Recently Administered Medications Times are shown in EDT. Scheduled Medication Order 05/21/2021 05/22/2021 05/23/2021 magnesium citrate solution 296 mL (COMPLETED) 1007 (Given - Provider: Capri Davis RN) 296 mL, oral, ONCE, 1 dose, Starting on 05/23/21 at 0953, Until Discontinued, Routine documented in this encounter Orders Medications Ordered That Might Not Have Count Last Ord ered Date First Ordered Date Been Administered magnesium citrate solution 296 mL 1 05/23/2021 documented in this encounter Care Teams Warehouse Supervisor Relationship Specialty Start Date End Date Jeanne Esparza, ADAL PCP - General 11/28/19 [address] [place] [address] documented as of this encounter
--- OUTSIDE RECORDS SUMMARY | 2021-12-08 11:58 | XMS_ITS | Encounter Summary ---
:1985 Author Organization [facility] Address [address] [place] [address] Care Team Providers Name Role Phone Jeanne Esparza ROUTE CDL DRIVER Primary Care Provider Encounter Details Date Type Department Care Team Description 05/05/2020 Results Only Imaging [facility] - Aamir Thomas rt [facility] Cardiology Clin ic MD Vikas [address] [place] [address] [place], [place] [phone] (Wo rk) Social History Tobacco Use [...] Visit Urology Mp Echeverria PA -C [address] [facility], Level [address] [place], [place] [address] (Wo rk) documented as of this encounter Procedures Procedure Name Priority Date/Time Associated Diagnosis Comme nts EKG 12-LEAD 05/05/2020 17:13 EDT Results for this procedure are i n the results section . documented in this encounter Results EKG 12-LEAD (05/05/2020 17:13 EDT) Specimen Narrative [facility] - 021 17:13 EDT ? [facility] ? Test Date: ?2020-05-05 17:13:45 Pat Name: ? TONE VILLARREAL ?Department: ?Room: ? 301 Gender: ? M ?Director Orange: ?? DKK : ?1985 ? Requested By: Order Number: ?Reading MD: ?? Francis Villeda MD ? Measurements Intervals ?[place] ? Rate: ? 62 ? P: ?63 OK: ? 186 ?QRS: ?69 QRSD: ? 98 ? T: ?63 QT: ? 448 ? QTc: ?454 ? Interpretive Statements Normal sinus rhythm Early repolarization Normal ECG No previous ECG available for comparison Electronically Signed On 05-06-2020 10:00 :12 EDT by Francis Villeda MD [email or web address] [email or web address] Procedure Note Francis Villeda MD - 05/06/2020 [facility] Test Date: 2020-05-05 17:13:45 Pat Name: TONE VILLARREAL Department: Room: 301 Gender: M Director Orange: NIKITA : 1985 Requested By: Order Number: Reading MD: Francis Villeda MD Measurements Intervals [place]dwell Rate: 62 P: 63 OK: 186 QRS: 69 QRSD: 98 T: 63 QT: 448 QTc: 454 Interpretive Statements Normal sinus rhythm Early repolarization Normal ECG No previous ECG available for comparison Electronically Signed On 05-06-2020 10:00 :12 EDT by Francis Villeda MD [email or web address] [email or web address] Performing Organization Address City/State/ZIP Code Phon e Number [facility] [address] [place] [address] documented in this encounter Visit Diagnoses Not on filedocumented in this encounter Care Teams Color Checker Roving Or Yarn Relationship Specialty Start Date End Date Jeanne Esparza NP PCP - General 11/28/19 [address] [place] [address] documented as of this encounter
--- OUTSIDE RECORDS SUMMARY | 2021-12-08 11:58 | XMS_ITS | Encounter Summary ---
:1985 Author Organization [facility] Address [address] [place] [address] Care Team Providers Name Role Phone Jeanne Esparza ATHLETIC FIELD CUSTODIAN Primary Care Provider Encounter Details Date Type Department Care Team Description 05/05/2020 Results Only [facility] Antony Thomas, [facility] [address] [place] [address] [place] [address] (Wo rk) Social History Tobacco Use [...] Visit Urology Mp Echeverria PA -C [address] [facility], [place], [address] [place], [place] [address] (Wo rk) documented as of this encounter Procedures Procedure Name Priority Date/Time Associated Comments Diagnosis COMPLETE BLOOD COUNT Routine 05/05/2020 8:52 Resu lts for this WITH DIFFERENTIAL EDT procedure are in (AUTO) the results section. MAGNESIUM Routine 05/05/2020 8:52 Results for this EDT procedure are i n the results section. PHENOBARBITAL Routine 05/05/2020 8:52 Results for this EDT procedure are i n the results section. COMPREHENSIVE Routine 05/05/2020 8:52 Results for this METABOLIC PANEL (CMP) EDT proced ure are in the results section. documented in this encounter Results (ABNORMAL) PHENOBARBITAL (05/05/2020 8:52 EDT) [facility] Phenobarbital 45.5 (A) 15.0 - 40.0 [facility] Comment: ug/mL [facility] Result called to HAKEEM KHAN/ICU 05/05/20 1239 Result called by JING Test performed or referred by The [address] [address] Specimen Performing Organization Address City/[facility] Phon e Number [facility] [address] [place] [address] (ABNORMAL) MAGNESIUM (05/05/2020 8:52 EDT) [facility] Magnesium 1.60 (L) 1.7 - 2.8 mg/dL [facility] Specimen Performing Organization Address City/[facility] Phon e Number [facility] [address] [place] [address] (ABNORMAL) COMPREHENSIVE METABOLIC PANEL (CMP) (05/05/2020 8:52 EDT) [facility] ALBUMIN [facility] 4.0 3.4 - 4.9 [facility] g/dL [facility] ALKALINE 77 38 - 126 U/L [facility] PHOSPHATASE [facility] BILIRUBIN TOTAL 1.4 (H) 0.2 - 1.3 [facility] mg/dL [facility] BUN - [facility] 9 (L) 10 - 26 mg/dL [facility] CALCIUM - [facility] [place] 8.7 8.5 - 10.5 [facility] mg/dL [facility] Chloride 102 96 - 110 [facility] mmol/L [facility] CO2 Total 24 21 - 32 mEq/L [facility] CREATININE 0.62 (L) 0.66 - 1.25 [facility] mg/dL [facility] eGFR >60 [facility] Comment: [facility] Chronic renal impairment is defined as GFR <60 Multiply result by 1.210 for patients . Anion Gap 11 0 - 18 [facility] GLUCOSE - [facility] 83 70 - 100 [facility] mg/dL [facility] Potassium 3.6 3.5 - 5.0 [facility] mEq/L [facility] Sodium 137 136 - 145 [facility] mEq/L [facility] TOTAL PROTEIN - 6.7 6.2 - 8.2 [facility] gm/dL [facility] SGOT/AST - [facility] 87 (H) 17 - 59 U/L [facility] SGPT/ALT - [facility] 40 0 - 50 U/L [facility] Specimen Performing Organization Address City/State/ZIP Code Phon e Number [facility] [address] [place] [address] (ABNORMAL) COMPLETE BLOOD COUNT WITH DIFFERENTIAL (AUTO) (05/05/2020 8:52 EDT) ABSOLUTE NEUTROPHIL 5.0 2.2 - 8.85 [facility] COUN - [facility] 10e3/uL [facility] BASO # - [facility] [place] 0.04 0.01 - 0.11 [facility] 10e/uL [facility] BASO % - [facility] [place] [place] 1 0 - 2 % [facility] EOS # - [facility] [place] [place] 0.12 0.03 - 0.61 [facility] 10e3/ul [facility] EOS % - [facility] [place] 2 0 - 5 % [facility] GRAN % - [facility] [place] 68.2 40 - 80 % [facility] HEMATOCRIT - [facility] [place] 37.9 (L) 39.5 - 50.2 % [facility] HEMOGLOBIN - [facility] [place] 12.9 (L) 13.8 - 17.3 [facility] g/dl [facility] IG# - [facility] [place] 0.08 0 - 0.7 10e3/uL [facility] IG% - [facility] [place] [place] 1.1 (H) 0 - 0.9 % [facility] LYMPH # - [facility] [place] [place] 1.1 1.09 - 3.3 [facility] 10e3/ul [facility] LYMPH% - [facility] [place] 15.7 (L) 20 - 40 % [facility] MEAN CORPUSCULAR HGB 35.0 (H) 27.6 - 33.0 pg [facility] ME D - [facility] MEAN CORPUSCULAR HGB 34.0 32.8 - 36.4 [facility] CONC - [facility] [place] [place] g/dL [facility] MEAN CELL VOLUME - 102.7 (H) 81 - 95 fl [facility] MONO # - [facility] [place] 0.9 (H) 0.1 - 0.8 [facility] 10e3/uL [facility] MONO% - [facility] 12.7 (H) 0 - 12 % [facility] PLATELET COUNT 102 (L) 141 - 377 [facility] 10e3/ul [facility] RED BLOOD COUNT - 3.69 (L) 4.36 - 5.78 [facility] 10e6/ul [facility] RED CELL DISTRI WIDTH 11.3 <14.2 % [facility] WHITE BLOOD COUNT - 7.3 4.0 - 10.4 [facility] 10e3/ul [facility] Specimen Performing Organization Address City/State/ZIP Code Phon e Number [facility] [address] [place] [address] documented in this encounter Visit Diagnoses Not on filedocumented in this encounter Care Teams Pc Support Specialist Relationship Specialty Start Date End Date Jeanne Esparza NP PCP - General 11/28/19 [address] [place], [place] [id number] documented as of this encounter
--- OUTSIDE RECORDS SUMMARY | 2021-12-08 11:58 | XMS_ITS | Encounter Summary ---
:1985 Author Organization [facility] Address [address] [place] [address] Care Team Providers Name Role Phone Jeanne Esparza CHILDREN'S COUNSELOR Primary Care Provider Encounter Details Date Type Department Care Team Description 05/03/2020 Results Only Imaging [facility] - Johnnie Clement, [facility] Radiology Resul ts [address] [place] [address] [place], [place] [phone] (Wo rk) Social History Tobacco Use [...] Visit Urology Mp Echeverria PA -C [address] [facility], [facility], [address] [place], [place] [address] (Wo rk) documented as of this encounter Procedures Procedure Name Priority Date/Time Associated Diagnosis Comme nts XR CHEST 1 VIEW 05/03/2020 18:22 Results for this EST procedure are i n the results section. CT HEAD WO CONTRAST 05/03/2020 18:22 Resu lts for this EST procedure are i n the results section. documented in this encounter Results XR CHEST 1 VIEW (05/03/2020 18:22 EST) Specimen Narrative [facility] - 05/03/2020 18:22 EST ? EXAM: RADIOLOGY/CHEST- SINGLE VIEW ?EX. D/ (1814) ? CLINICAL INFORMATION: ? new seizure, r/o aspiration ? PROCEDURE INFORMATION: ? Exam: XR Chest ? Exam date and time: 05/03/2020 17: 36 ? Age: 34 years old ? Clinical indication: Other: R/O a spiration; Additional info: New ? seizure, R/O aspiration ? TECHNIQUE: ? Imaging protocol: XR of the chest ? Views: 1 view. ? COMPARISON: ? No relevant prior studies availab le. ? FINDINGS: ? Lungs: No consolidation. ? Pleural spaces: No pleural effusi on. No pneumothorax. ? Heart/Mediastinum: No cardiomegal y. ? Bones/joints: No acute fracture. ? IMPRESSION: ? Negative portable chest. ? REPORT SIGNED IN OTHER VENDOR SYSTEM 05/03/2020 ?Reported B y: Beth Lopez MD ? CC: ? Transcribed Date/Time: 05/03/2020 (182) ? Paper Slitter: ? Printed Date/Time: 05/03/2020 () ? PAGE 1 ? Jacqueline d Report ? Procedure Note Beth Lopez MD - 05/03/2020 EXAM: RADIOLOGY/CHEST- SINGLE VIEW EX. D/ (1814) CLINICAL INFORMATION: new seizure, r/o aspiration PROCEDURE INFORMATION: Exam: XR Chest Exam date and time: 05/03/2020 17:36 Age: 34 years old Clinical indication: Other: R/O aspirat ion; Additional info: New seizure, R/O aspiration TECHNIQUE: Imaging protocol: XR of the chest Views: 1 view. COMPARISON: No relevant prior studies available. FINDINGS: Lungs: No consolidation. Pleural spaces: No pleural effusion. No pneumothorax. Heart/Mediastinum: No cardiomegaly. Bones/joints: No acute fracture. IMPRESSION: Negative portable chest. REPORT SIGNED IN OTHER VENDOR SYSTEM 05/03/2020 Reported By: Beth Lopez MD CC: Transcribed Date/Time: 05/03/2020 (1821 ) Paper Slitter: Printed Date/Time: 05/03/2020 (1821) PAGE 1 Signed Report Performing Organization Address City/State/ZIP Code Phon e Number [facility] CT HEAD WO CONTRAST (05/03/2020 18:22 EST) Specimen Narrative [facility] - 05/03/2020 18:22 EST ? EXAM: CAT SCAN/HEAD WITHOUT CONTRAST ?EX. D/ (1802) ? CLINICAL INFORMATION: ? new seizure ? PROCEDURE INFORMATION: ? Exam: CT Head Without Contrast ? Exam date and time: 05/03/2020 17: 36 ? Age: 34 years old ? Clinical indication: Other: New s eizure ? TECHNIQUE: ? Imaging protocol: Computed tomogr aphy of the head without ? contrast. ? Radiation optimization: All CT sc ans at this facility use at ? least one of these dose optimizat ion techniques: automated ? exposure control; mA and/or kV ad justment per patient size ? (includes targeted exams where do se is matched to clinical ? indication); or iterative reconst ruction. ? COMPARISON: ? No relevant prior studies availab le. ? FINDINGS: ? Brain: Moderate cerebellar atroph y is greater than expected for ? age. Mild cerebral cortical atrop hy for age, greater than ? expected. No significant white ma tter disease for the patient's ? age. No edema or hemorrhage. ? Cerebral ventricles: No ventricul omegaly. ? Bones/joints: No acute fracture. ? Paranasal sinuses: No acute sinus itis. ? Mastoid air cells: No mastoid eff usion. ? Soft tissues: No suspicious lesio ns. ? IMPRESSION: ? 1. No acute intracranial findings . ? 2. Cerebellar greater than cerebr al cortical atrophy, greater ? than expected for age.. ? REPORT SIGNED IN OTHER VENDOR SYSTEM 05/03/2020 ?Reported B y: Beth Lopez MD ? CC: ? Transcribed Date/Time: 05/03/2020 (1822) ? Paper Slitter: ? Printed Date/Time: 05/03/2020 (18 ) ? PAGE 1 ? Jacqueline d Report ? Procedure Note Beth Lopez MD - 05/03/2020 EXAM: CAT SCAN/HEAD WITHOUT CONTRAST EX . D/ (1802) CLINICAL INFORMATION: new seizure PROCEDURE INFORMATION: Exam: CT Head Without Contrast Exam date and time: 05/03/2020 17:36 Age: 34 years old Clinical indication: Other: New seizure TECHNIQUE: Imaging protocol: Computed tomography o f the head without contrast. Radiation optimization: All CT scans at this facility use at least one of these dose optimization te chniques: automated exposure control; mA and/or kV adjustme nt per patient size (includes targeted exams where dose is matched to clinical indication); or iterative reconstructio n. COMPARISON: No relevant prior studies available. FINDINGS: Brain: Moderate cerebellar atrophy is g reater than expected for age. Mild cerebral cortical atrophy for age, greater than expected. No significant white matter d isease for the patient's age. No edema or hemorrhage. Cerebral ventricles: No ventriculomegal y. Bones/joints: No acute fracture. Paranasal sinuses: No acute sinusitis. Mastoid air cells: No mastoid effusion. Soft tissues: No suspicious lesions. IMPRESSION: 1. No acute intracranial findings. 2. Cerebellar greater than cerebral cor tical atrophy, greater than expected for age.. REPORT SIGNED IN OTHER VENDOR SYSTEM 05/03/2020 Reported By: Beth Lopez MD CC: Transcribed Date/Time: 05/03/2020 (1821 ) Paper Slitter: Printed Date/Time: 05/03/2020 (1821) PAGE 1 Signed Report Performing Organization Address City/State/ZIP Code Phon e Number [facility] documented in this encounter Visit Diagnoses Not on filedocumented in this encounter Care Teams Box Order Person Relationship Specialty Start Date End Date Jeanne Esparza NP PCP - General 11/28/19 [address] [place] [address] documented as of this encounter
--- OUTSIDE RECORDS SUMMARY | 2021-12-08 11:58 | XMS_ITS | Encounter Summary ---
:1985 Author Organization [facility] Address [address] [place] [address] Care Team Providers Name Role Phone Jeanne Esparza COMPANY CONTROLLER Primary Care Provider Encounter Details Date Type Department Care Team Description 09/19/2021 Phlebotomy Only [facility], [facility] Op Pre-pr ocedure lab - [facility] Phlebotomy [facility] - Outpatient Phlebotomy Drawing [address] [place], [place] [id number] Social History Tobacco Use Types Packs/Day Years [...] Visit Urology Mp Echeverria PA -C [address] [facility], [facility], [address] [place], [place] [phone] (Wo rk) documented as of this encounter Procedures Procedure Name Priority Date/Time Associated Diagnosis Comme nts COVID-19 [facility] Today 09/19/2021 10:06 Pre-procedure lab (TESTING ONLY) EDT exam COVID-19 TESTING Routine 09/19/2021 10:06 Pre-procedure lab Re sults for this EDT exam procedure are i n the results section. documented in this encounter Results [facility] (TESTING ONLY) (09/19/2021 10:06 EDT) Specimen Swab - Anterior nares Performing Organization Address [facility] Phon e Number [facility] [address] [place] [address] COVID-19 TESTING (09/19/2021 10:06 EDT) COVID-19 rt-PCR Negative Negative [facility] Result Comment: [facility] This test has not been [...] terminated or revoked sooner. Performed on the [employer] GeneXpert Instrument The 2019 novel coronavirus (SARS-CoV-2) target nucleic acids are not detected. Performing Lab [employer] GeneXpert [facility] Specimen Swab - Anterior nares Performing Organization Address City/[facility] Code Phon e Number [facility] [address] [place] [address] documented in this encounter Visit Diagnoses Diagnosis Pre-procedure lab exam Pre-procedural laboratory examination documented in this encounter Care Teams Contracts Specialist Relationship Specialty Start Date End Date Jeanne Esparza NP PCP - General 11/28/19 [address] [place] [address] documented as of this encounter
--- OUTSIDE RECORDS SUMMARY | 2021-12-08 11:58 | XMS_ITS | Clinical Summary ---
:1985 Author Organization [facility] Address [address] [place] [address] Care Team Providers Name Role Phone Jeanne Esparza CREDIT COMPLIANCE OFFICER Primary Care Provider Allergies Active Allergy Reactions Severity Noted Date Comments Penicillins 09/16/2015 Medications Medication Sig Dispensed Refills Start Date End Date Status sildenafiL (REVATIO) 20 TAKE 1 TO 5 0 07/13/2021 Active mg tablet TABLETS BY MOUTH 30 MINUTES PRIOR TO NEED. MAXIMUM DAILY DOSE IS 3 TABLETS IN 24 HOURS Multivitamins with Take 1 Tablet by 0 Active Minerals tablet tablet mouth daily. Active Problems Problem Noted Date Closed trimalleolar fracture of left ankle 04/10/2018 Alcohol use disorder, severe, in early remission 05/14 Encounters Date Type Specialty Care Team Description 09/19/2021 Phlebotomy Only [facility] Lab, [facility] [place] Pre-p rocedure lab Phlebotomy exam from Last 3 Months Medical History Medical History Date Comments Ankle fracture Joint pain Joint swelling Numbness Family History Medical History Relation Name Comments Prostate Cancer Neg Hx Social History Tobacco Use Types Packs/Day Years Used Date Current Every Day Smoker 1.5 12 Smokeless Tobacco: Never Used Tobacco Cessation: Ready to Quit: No; Co unseling Given: No Alcohol Use Standard Drinks/Week Comments Not Currently [...] Assigned at Date Recorded Not on file Last Filed Vital Signs Vital Sign Reading Time Taken Comments Blood Pressure 102/62 08/01/2021 0944 EDT Pulse 67 08/01/2021 0944 EDT Temperature 36.7 ??C (98.1 ??F) 08/01/2021 0944 EDT Respiratory Rate 16 08/01/202144 EDT Oxygen Saturation 100% 08/01/2021943 EDT Inhaled Oxygen Concentration - - Weight 70.3 kg (155 lb) 05/23/2021820 EDT Height 193 cm (6' 4) 05/23/2021820 EDT Body Mass Index 18.87 05/23/2021 08 EDT Plan of Treatment Upcoming Encounters Date Type Specialty Care Team Description 02/26/2022 Office Visit Urology Mp Echeverria PA -C [address] [place] [address] [facility], [facility], [address] [place], [place] [phone] (Wo rk) Health Maintenance Due Date Last Done Comments Hepatitis C Screen 1985 COVID-19 Vaccine (#1) 1985 Pneumococcal Immunization (1 - PCV) 1990 Procedures Procedure Name Priority Date/Time Associated Diagnosis Comme nts COVID-19 [facility] Today 09/19/2021 10:06 Pre-procedure lab (TESTING ONLY) EDT exam COVID-19 TESTING Routine 09/19/2021 10:06 Pre-procedure lab Re sults for this EDT exam procedure are i n the results section. from Last 3 Months Results COVID-19 [facility] (TESTING ONLY) (09/19/2021 10:06 EDT) Specimen Swab - Anterior nares Performing Organization Address City/State/ZIP Code Phon e Number [facility] [address] [place] [address] COVID-19 TESTING (09/19/2021 10:06 EDT) COVID-19 rt-PCR Negative Negative [facility] Result Comment: [facility] [place] [facility] This test has not been FDA [...] terminated or revoked sooner. Performed on the [employer] GeneXpert Instrument The 2019 novel coronavirus (SARS-CoV-2) target nucleic acids are not detected. Performing Lab Cepheid GeneXpert [facility] Specimen Swab - Anterior nares Performing Organization Address City/State/ZIP Code Phon e Number [facility] [address] [place] [address] from Last 3 Months Insurance Payer Benefit Plan Subscriber ID Effective Phone Address Typ e / Group Dates MEDICAID ACO MEDICAID ACO [id number] 2021-Pres [phone] [address] [place] [address] [place] [place] [address] [place] [id number] Shelley Villarreal Personal/Family Self [address] (Home) [id number] [place] [id number] Shellye Villarreal Personal/Family Self [address] (Home) [address] [place] [id number] Shelley Villarreal Personal/Family Self [address] ([address] [id number] [place] [id number] Shelley Villarreal Personal/Family Self [address] [id number] [place] [id number] Shelley Villarreal Personal/Family Self [address] (Home) [id number] [place] [id number] Shelley Villarreal Personal/Family Self [address] (Home) [address] [place] [address] Shelley Villarreal Personal/Family Self 1985 [address] (Home) [address] [place] [address] Care Teams Learning And Development Analyst Relationship Specialty Start Date End Date Jeanne Esparza NP PCP - General 11/28/19 [address] [place], [place] [address]
--- OUTSIDE RECORDS SUMMARY | 2021-12-08 11:59 | XMS_ITS | Encounter Summary ---
:1985 Author Organization [facility] Address [address] [place] [address] Care Team Providers Name Role Phone None, Provider Primary Care Provider Unavailable Reason for Visit Reason Comments Leg Injury 5 days s/p ankle fracture a nd tibia fracture. Pt reports being woken up by this bone moving on its own and then i took my splint off. pt pointing to lateral malleolu s. Cast Repair Encounter Details Date Type Department Care Team Description 04/03/2018 Emergency [facility] Kiah Marlow PA-C [address] [place] [id number] Closed bimalleolar Emergency Department - Emergency, MD Danyel fracture of left ankle [facility] [place] with routine healing, [address] [place] [address] (Primary Dx) [phone] Social History Tobacco Use Types Packs/Day Years Used Date Current Every Day Smoker 1.5 12 Smokeless Tobacco: Never Used Alcohol Use Standard Drinks/Week Comments Yes 20 (1 standard drink = 0.6 oz pure alcoh ol) Sex Assigned at Date Recorded Not on file documented as of this encounter Last Filed Vital Signs Vital Sign Reading Time Taken Comments Blood Pressure 117/81 04/03/2018 0521 EST Pulse 74 04/03/2018 0521 EST Temperature 37.1 ??C (98.8 ??F) 04/03/2018 0521 EST Respiratory Rate 16 04/03/2018 0521 EST Oxygen Saturation 99% 04/03/2018 0521 EST Inhaled Oxygen Concentration - - Weight 68.9 kg (152 lb) 04/03/2018 0521 EST Height - - Body Mass Index 18.5 03/29/2018 1339 EST documented in this encounter Functional Status Functional [...] decisions? documented as of this encounter Discharge Diagnoses Diagnosis S82.842D Displaced bimalleolar fracture of left lower leg, subsequent encounter for closed fracture with routine healing-S82 .842D[ICD-10-CM] W00.0XXD Fall on same level due to ice a nd snow, subsequent encounter-W00.0XXD[ICD-10-CM] Z88.0 Allergy status to penicillin-Z88.0 [ICD-10-CM] F17.200 Nicotine dependence, unspecified , uncomplicated-F17.200[ICD-10-CM] documented in this encounter Discharge Instructions Kiah Lira PA - 04/03/2018 Xrays show a stable fracture, no new fractures. The ankle joint remained aligned Follow up with Orthopedics on as planned. Crutches to avoid weightbearing. Motrin 600 mg alternating with Tylenol 650 mg every 6-8 hours. Elevate above your heart for swelling. Return for any worsening or concerning symptoms. documented in this encounter Medications at Time of Discharge Medication Sig Dispensed Refills Start Date End Date diazePAM (VALIUM) 10 mg Take 1 Tab by mouth 2 times daily. Day one and 2- 10 mg every 6 hours 18 Tab 0 05/09/2016 05/23/2021 tablet Day 3 and 4- 10 mg every 8 hours Day 5 and 6-10 mg twice a day Daily Max: 20 mg documented as of this encounter Discharge Disposition Disposition Code Departure Means Destination Home or Self Care documented in this encounter ED Notes Dangelo Vila RN - 04/03/2018 0633 EST No change in pt condition since [place] VILLARREAL last at bedside. Follow up with pcp and ortho and return with worsening sx or change in pt condition. AVS reviewed with pt who verbalized understanding. New splint applied by provider. Kiah Worley PA - 04/03/2018 0526 ESTAssociated Order(s): Ortho Injury DOS: 04/03/2018 Chief Complaint Patient presents with ??? Leg Injury 5 days s/p ankle fracture and tibia fracture. Pt reports being woken up by this bone moving on its own and then i took my splint off. pt pointing to lateral malleolus. ??? Cast Repair HPI The history is provided by the patient and medical records. I, Jovita Miller, am scribing for Kiah Marlow PA while he/she is personally performing theservice. Jovita Angela 04/03/2018 5:26 Shelley Villarreal is a 32 y.o. male with a history of alcohol use disorder. Of note, patient was seen inthe ED on 03/29 with a closed bimalleolar fracture of the left ankle s/p inversion injury slipping on ice. He was placed in a posterior short leg with a stirrup and discharged. Patient presents to the ED today with persistent left ankle pain as well as new onset deformity to his left ankle. Patient describes that when he woke up today, his lateral malleolus shifted towards the medial aspect of his left foot. He took off his splint secondary to the pain and moved the malleolus back to the correct position. Patient states that he currently lives alone but has been trying to not bear weight on that ankle. He is otherwise at his baseline state of health denying fever, chills, nausea, vomiting, diarrhea, abdominal pain, chest pain, shortness of breath, or headache. Review of Systems Review of Systems Constitutional: Negative for chills and fever. HENT: Negative for sinus pressure and sore throat. Respiratory: Negative for cough and shortness of breath. Cardiovascular: Negative for chest pain. Gastrointestinal: Negative for abdominal pain, diarrhea, nausea and vomiting. Genitourinary: Negative for dysuria and frequency. Musculoskeletal: Positive for gait problem. Left ankle pain and swelling Skin: Negative for rash. Neurological: Negative for headaches. All other systems reviewed and are negative. The patient's past medical, family and social history was reviewed and updated as needed. Allergies Allergen Reactions ??? Penicillins Vital Signs Vitals Reassessment?: Yes Temp: 37.1 ??C (98.8 ??F) Temp src: Oral Pulse: 74 Resp: 16 SpO2: 99 % BP: 117/81 BP Device: BP Machine Patient Position: Sitting BP Cuff Location: Left arm O2 Device: None (Room air) Physical Exam Constitutional: He is oriented to person, place, and time. He appears well- developed and well-nourished. No distress. HENT: Head: Normocephalic and atraumatic. Eyes: Conjunctivae are normal. Pupils are equal, round, and reactive to light. Neck: Normal range of motion. No tracheal deviation present. Cardiovascular: Normal rate and regular rhythm. Pulmonary/Chest: Effort normal. No respiratory distress. Musculoskeletal: Normal range of motion. He exhibits no edema. Bimalleolar swelling with old ecchymosis present on the bilateral ankle and extending down to the foot. Medial and lateral pain. Limited range of motion due to discomfort. No proximal fibular pain. No foot pain. No proximal 5th metatarsal pain. Neurovascularly intact. Neurological: He is alert and oriented to person, place, and time. He exhibits normal muscle tone. Skin: Skin is dry. Psychiatric: He has a normal mood and affect. Nursing note and vitals reviewed. RESULTS EKG orders: None Radiology orders: ANKLE 3 OR MORE VIEWS Ortho Injury Date/Time: 04/11/2018 14:38 Performed by: Kiah Marlow PA Authorized by: Kiah Marlow PA Consent: Verbal consent obtained. Consent given by: patient Patient understanding: patient states understanding of the procedure being performed Patient consent: the patient's understanding of the procedure matches consent given Imaging studies: imaging studies available Required items: required blood products, implants, devices, and special equipment available Patient identity confirmed: verbally with patient and arm band Time out: Immediately prior to procedure a time out was called to verify the correct patient, procedure, equipment, system support technician and site/side marked as required. Injury location: lower leg Location details: left lower leg Injury type: fracture (bimalleolar fracture) Pre-procedure neurovascular assessment: neurovascularly intact Pre-procedure distal perfusion: normal Pre-procedure neurological function: normal Anesthesia: Local anesthesia used: no Manipulation performed: no Immobilization: splint Splint type: short leg (with ankle stirrup) Supplies used: plaster Post-procedure neurovascular assessment: post-procedure neurovascularly intact Post-procedure distal perfusion: normal Post-procedure neurological function: normal Patient tolerance: Patient tolerated the procedure well with no immediate complications ED COURSE A medical screening exam was performed. Shelley Villarreal is a 32 y.o. male with a history closed bimalleolar fracture of the left ankle 2/ whopresents with acute onset left ankle malleolus deformity this morning which has resolved. Physical exam significant for: Bimalleolar swelling with old ecchymosis presents and extending down to the foot. Medial and lateral pain. Repeat xrays obtained as pt has been ambulating without a splint on and no crutches. Essentially unchanged. Repeat splint placed. Has appt with orthopedics this week. Advised crutches, no weight bearing until seen by ortho and cleared to ambulate. Worsening signs, symptoms reviewed, return precautions given. Final diagnoses: Closed bimalleolar fracture of left ankle with routine healing, subsequent encounter DISPOSITION: Discharged The patient's pain was managed to an adequate level weighing risk vs. benefit of further medications. Upon departure from the Emergency Department, the patient's pain was 4 on a zero to ten scale. Any further pain treatment will be at the discretion of the provider following up with the patient based on their clinical assessment. Condition at departure from the Emergency Department: Stable PCP: Provider None TR Lopes was available for supervision. This documentation is recorded by Jovita Miller acting as Scribe under the direction and presence of Kiah Marlow PA. Kiah Marlow PA: I personally performed the services recorded by the scribe in my presence. I confirm the scribe's documentation has been reviewed by me to accurately and completely record my work,treatment, procedures, and medical decision making. Dr. Lopes was available for supervision. 04/04/2018 22:04 No flowsheet data found. documented in this encounter Plan of Treatment Upcoming Encounters Date Type Specialty Care Team Description 02/26/2022 Office Visit Urology Mp Echeverria PA -C [address] [facility], [facility], [address] [place] [phone] (Wo rk) documented as of this encounter Procedures Procedure Name Priority Date/Time Associated Comments Diagnosis ANKLE 3 OR MORE STAT 04/03/2018 5:58 EST Resul ts for this VIEWS procedure are i n the results section. ED ORTHOPEDIC INJURY Routine 04/03/2018 5:26 EST Results for this TREATMENT procedure are i n the results section. documented in this encounter Results ANKLE 3 OR MORE VIEWS (04/03/2018 5:58 EST) Anatomical Region Laterality Modality Other Specimen Narrative [facility] - 04/03/2018 9:50 EST ANKLE 3 OR MORE VIEWS ??04/03/2018 5:58 AM Signs and Symptoms/Comments: ??known bim alleolar fx, took splint off, ambulating, reassess Comparison: Left ankle radiographs . Findings: AP, oblique, and lateral views of the le ft ankle again show minimally displaced, intra-articular tra nsverse medial malleolar fracture. There is again identified obli que fracture of the fibula at the level of the distal tibiofibular joint with widening of the lateral clear space. Posterior malleolar nondisplaced fracture is again visualized. Alignment is unchanged . There is no joint space widening on these nonweightbearing, nons tress radiographs. No new abnormality. ?? I have personally reviewed the images an d the above interpretation and agree with the findings. Procedure Note Genaro Ulloa MD - 04/03/2018 ANKLE 3 OR MORE VIEWS 04/03/2018 5:58 AM Signs and Symptoms/Comments: known david leolar fx, took splint off, ambulating, reassess Comparison: Left ankle radiographs 019. Findings: AP, oblique, and lateral views of the le ft ankle again show minimally displaced, intra-articular tra nsverse medial malleolar fracture. There is again identified obli que fracture of the fibula at the level of the distal tibiofibular joint with widening of the lateral clear space. Posterior malleolar nondisplaced fracture is again visualized. Alignment is unchanged . There is no joint space widening on these nonweightbearing, nons tress radiographs. No new abnormality. I have personally reviewed the images an d the above interpretation and agree with the findings. Performing Organization Address City/State/ZIP Code Phon e Number [facility] Ortho Injury (04/03/2018 5:26 EST) Narrative [facility] - 04/03/2018 5:26 EST Kiah Marlow PA ? 04/11/2018 14:39 Ortho Injury Date/Time: 04/11/2018 14:38 Performed by: Kiah Marlow PA Authorized by: Kiah Marlow PA Consent: Verbal consent obtained. Consent given by: patient Patient understanding: patient states un derstanding of the procedure being performed Patient consent: the patient's understan ding of the procedure matches consent given Imaging studies: imaging studies availab le Required items: required blood products, implants, devices, and special equipment available Patient identity confirmed: verbally wit h patient and arm band Time out: Immediately prior to procedure a time out was called to verify the correct patient, procedure, equipmen t, system support technician and site/side marked as required. Injury location: lower leg Location details: left lower leg Injury type: fracture (bimalleolar fract ure) Pre-procedure neurovascular assessment: neurovascularly intact Pre-procedure distal perfusion: normal Pre-procedure neurological function: nor mal Anesthesia: Local anesthesia used: no Manipulation performed: no Immobilization: splint Splint type: short leg (with ankle stirr up) Supplies used: plaster Post-procedure neurovascular assessment: post-procedure neurovascularly intact Post-procedure distal perfusion: normal Post-procedure neurological function: no rmal Patient tolerance: Patient tolerated the procedure well with no immediate complications Performing Organization Address City/[facility]/ZIP Code Phon e Number [facility] documented in this encounter Visit Diagnoses Diagnosis Closed bimalleolar fracture of left ankl e with routine healing, subsequent encounter - Primary documented in this encounter Care Teams Aerial Sprayer Relationship Specialty Start Date End Date None, Provider PCP - General 05/09/16 11/27/19 documented as of this encounter
--- OUTSIDE RECORDS SUMMARY | 2021-12-08 11:59 | XMS_ITS | Encounter Summary ---
:1985 Author Organization [facility] Address [address] [place] [address] Care Team Providers Name Role Phone Unknown, Provider Primary Care Provider Reason for Visit Reason Onset Date Comments Appointment Related 09/29/2015 procedure 10/01/15 Follow-up 09/29/2015 procedure Encounter Details Date Type Department Care Team Description 09/29/2015 Telephone [facility] Ottoniel Willard, Appointment Related Urology - Jose blackwell MD (procedure 10/01/15); [address] [facility] [address] [facility] Follow-up (procedure) [place], [place] [id number] [place] [address] [place], [address] [place] [phone] (Wo rk) Social History Tobacco Use Types Packs/Day Years Used Date Current Every Day Smoker 1 Alcohol Use Standard Drinks/Week Comments Yes 20 [...] this encounter Miscellaneous Notes Telephone Encounter - Vale Puente - 10/10/2015 1224 EDT Called patient with new procedure date for MPU 05 for 9/14 check in 11:45 for procedure @ 12:30 elephone Encounter - lAethea Dia - 09/30/2015 1458 EDT Spoke to patient who wants to postpone surgery scheduled for 10/01/[address] Willard. Patient would like to reschedule. Will forward to Maki to contact patient. elephone Encounter - Kylee Bentley - 09/29/2015 1435 EDT Reason for Call: Appointment Related (procedure 10/01/15) Summary/Symptoms: Patient needs to reschedule his 10/01/[address] Willard. [employer] is sending [employer] as procedure is this Tuesday. Kylee Bentley 09/29/2015 14:35 documented in this encounter Plan of Treatment Upcoming Encounters Date Type Specialty Care Team Description 02/26/2022 Office Visit Urology Mp Echeverria PA -C [address] [facility], [facility] [place], [address] [place], [place] [phone] (Wo rk) documented as of this encounter Visit Diagnoses Not on filedocumented in this encounter Care Teams Private Duty Rn Relationship Specialty Start Date End Date Unknown, Provider, PCP - General 07/18/15 05/08/16 documented as of this encounter
--- OUTSIDE RECORDS SUMMARY | 2021-12-08 11:59 | XMS_ITS | Encounter Summary ---
:[address] [facility] Address [address] [place] [address] Care Team Providers Name Role Phone None, Provider Primary Care Provider Unavailable Encounter Details Date Type Department Care Team Description 03/29/2018 Travel Social History Tobacco Use Types Packs/Day Years [...] Visit Urology Mp Echeverria PA -C [address] [facility], [facility], [address] [place], [place] [phone] (Wo rk) documented as of this encounter Visit Diagnoses Not on filedocumented in this encounter Care Teams Client Delivery Manager Relationship Specialty Start Date End Date None, Provider PCP - General 05/09/16 11/27/19 documented as of this encounter
--- OUTSIDE RECORDS SUMMARY | 2021-12-08 11:59 | XMS_ITS | Encounter Summary ---
:1985 Author Organization [facility] Address [address] [place] [address] Care Team Providers Name Role Phone None, Provider Primary Care Provider Unavailable Reason for Referral (Routine) - Closed Specialty Diagnoses / Procedures Referred By Contact Refer red To Contact Diagnoses Closed fracture of left ankle with routine healing, subsequent encounter Ki Talamantes MD Procedures ANKLE 3 OR MORE VIEWS [address] [place] [phone] Referral ID Status Reason Start Date Expiration Date Visits Requ ested Visits Authorized [id number] Closed 04/06/2018 1 1 Reason for Visit Reason Comments New Patient Visit Left ankle fx DOI 03-29-18 Consult (Routine) - Authorization Not Required Specialty Diagnoses / Procedures Referred By Contact Refer red To Contact Orthopedic Surgery Diagnoses Closed bimalleolar fracture of left ankle, initial encounter Agus Jordan MD [facility] Ortho Trauma [address] [place] [address] [place] [address] Pavilion, Level [address] [place] [address] Phone: [phone] Referral ID Status Reason Start Expiration Visits Visits Date Date Requested Authorized [id number] Authorization Specialty 03/29/2018 1 1 Not Required Services Required Encounter Details Date Type Department Care Team Description 04/06/[address] [facility] Ki Talamantes ed fracture of left ankle with routine healing, subsequent encounter (Primary Dx); Orthopedic Trauma - MD Sathish Closed trimalleolar fracture of left ank le, initial encounter Franny [address] [facility] [id number] [phone] Social History Tobacco Use Types Packs/Day Years [...] for closed fracture with routine healing-S82 .842D[ICD-10-CM] M79.89 Other specified soft tissue disor ders-M79.89[ICD-10-CM] documented in this encounter Discharge Disposition Disposition Code Departure Means Destination Auto Discharge documented in this encounter Progress Notes Ki Talamantes MD - 04/06/2018 1430 EST CC: Left ankle fracture HPI: Shelley Villarreal is a 32 y.o. male who sustained a left ankle injury after slipping on ice. This injury occurred on 03/29/2018. Patient states that he noted immediate left ankle pain and inability to ambulate. Patient denies head strike, loss of consciousness or other injury. He was closed reduced andplaced into a splint. Patient subsequently removed his splint and re-presented to the ED on 04/03/18.He was placed into a new splint and discharged. He presents today for his first outpatient appointment. The patient is no longer in the splint that was last put on him and was seen ambulating in the clinic today. He states that overall he does experience left ankle pain but it is tolerable. He rates it as an 8/10. He removed his splint because he states that it was not comfortable. Since 04/03 he states that he has had no falls. He denies prior left ankle injury or surgery. He did not need assistive devices before his most recent ankle fracture. He has no other complaints. PMH: Denies PSH: Denies Medications: Current Outpatient Medications: diazePAM (VALIUM) 10 mg tablet No current facility-administered medications for this visit. Allergies: Allergies Allergen Reactions ??? Penicillins SH: The patient is self-employed; he drinks a sixpack of Budweiser a day and smokes a pack of cigarettes. He denies other drug use. FH: No DVT or PE ROS: A fourteen point review of systems (Constitutional, Eyes, ENT/Mouth, Cardiovascular, Respiratory, Gastrointestinal, Genitourinary, Musculoskeletal, Integumentary, Neurological, Psychiatric, Endocrine, Hematologic/Lymphatic, Allergic/Immunologic) was performed. Pertinent positives are listed below, all others are negative unless noted. Physical exam: General: Well developed, well nourished; the patient appears in slight discomfort Psych: Normal affect, thoughts are logical and sequential Pulmonary: Normal respirations, non-labored breathing Extremity: Patient's ankle was inspected. His skin is intact but is ankle is swollen and there is diffuse ecchymosis. He has tenderness to palpation over his medial and lateral malleoli. He is able to actively flex and extend his ankle from neutral to 25 degrees and continually does it throughout our encounter. He is able to actively flex and extend his toes. He has intact sensation throughout his foot. Foot is warm and well-perfused. Radiographs: Injury radiographs are reviewed which shows a trimalleolar ankle fracture with no evidence of increased medial clear space or lateral translation of the talus. The medial malleolar fracture appears incomplete and the posterior malleolar fracture is small. No other fractures are seen. Assessment and plan: Shelley Villarreal is a 32 y.o. male who sustained a left trimalleolar ankle fracture. I had a long discussion with the patient regarding his injury. I told him that since he had a trimalleolar ankle fracture that my recommendation would be for surgical repair. The patient is not interested in surgery and is adamant that he wants nonoperative management. I am concerned as the patient has removed 2 splints and is ambulating on his ankle. I told him that if he should have another fall or reinjury there is a possibility that his ankle could more easily dislocate and this could convert to an open injury. The patient understands this. Although I again advocated for surgery the patient re fused. Our compromise therefore is to place him into a short leg cast and obtain radiographs today to ensure that his ankle is symmetrically reduced. I told him that if his fracture heals non-anatomically and he developed some ankle instability that this could lead to tibiotalar arthritis resulting inpain and limited ankle function and the need for future procedures such as an ankle fusion. The patient understands this and wants to continue with casting and non- operative treatment. Therefore the plan today is to place him to into a short leg cast and obtain 3 view radiographs of the left ankle. I advised him to not to bear weight on the ankle but I am going to make it a walking cast in anticipation that he will do that. My plan is to have him return in a week and obtain 3 view radiographs of hisankle in his cast to ensure that there is been no displacement or change. He will likely be in a cast for 4-6 weeks before transitioning him to a boot. The patient is in agreement with the treatment malcolm n. All questions were answered. Next appointment: One week with 3 view radiographs of the left ankle in his cast. Addendum: 3 view radiographs of the left ankle in his cast show appropriate alignment and concentricreduction of his tibiotalar joint. There is been no significant change in the displacement of his fracture fragments. Dahlia Diaz - 04/06/2018 1430 EST As instructed, I applied a short leg fiberglass cast with webril padding to the left lower extremity. Ki Talamantes MD was immediately available during the entire time the service was being provided. Materials used: 5 rolls of 3 inch fiberglass Patient Eduction Topic: Cast care and application Method: Handout and Verbal Taught to: Other and Patient Barriers: None Outcomes: verbalized understanding Dahlia Ho documented in this encounter Plan of Treatment Upcoming Encounters Date Type Specialty Care Team Description 02/26/2022 Office Visit Urology Mp Echeverria PA -C [address] [facility], [facility], Level 5 [place], [place] [phone] (Wo rk) documented as of this encounter Procedures Procedure Name Priority Date/Time Associated Diagnosis Comme nts ANKLE 3 OR MORE Routine 04/06/2018 15:04 Closed fracture of Re sults for this VIEWS EST left ankle with procedure ar e in routine healing, the results subsequent encounter section . documented in this encounter Results ANKLE 3 OR MORE VIEWS (04/06/2018 15:04 EST) Anatomical Region Laterality Modality Other Specimen Narrative [facility] - 04/07/2018 10:29 EST ANKLE 3 OR MORE VIEWS ??04/06/2018 3:04 PM SIGNS AND SYMPTOMS/COMMENTS: S82.892D-Other fracture of left lower le g, subsequent encounter for closed fracture with routine healing-ICD -10; Left ankle fx COMPARISON: Left ankle radiographs dated March 30, 2018 and March 29, 2018. FINDINGS: AP, lateral and oblique views of the lef t ankle show progressive healing of a nondisplaced fracture of th e medial tibial malleolus and mildly displaced oblique fracture of the distal fibula. The overall alignment is stable. There is sl ight widening of the medial clear space on the ankle mortise suggest ing an injury to deltoid ligament. There is residual bimalleolar soft tissue swelling, lateral more than medial. No new fractur e seen, however the overlying fiberglass cast material obscu res fine bony and soft tissue details. Procedure Note Fidel Douglas MD - 04/07/2018 ANKLE 3 OR MORE VIEWS 04/06/2018 3:04 PM SIGNS AND SYMPTOMS/COMMENTS: S82.892D-Other fracture of left lower le g, subsequent encounter for closed fracture with routine healing-ICD -10; Left ankle fx COMPARISON: Left ankle radiographs dated March 30, 2018 and March 29, 2018. FINDINGS: AP, lateral and oblique views of the lef t ankle show progressive healing of a nondisplaced fracture of th e medial tibial malleolus and mildly displaced oblique fracture of the distal fibula. The overall alignment is stable. There is sl ight widening of the medial clear space on the ankle mortise suggest ing an injury to deltoid ligament. There is residual bimalleolar soft tissue swelling, lateral more than medial. No new fractur e seen, however the overlying fiberglass cast material obscu res fine bony and soft tissue details. Performing Organization Address City/State/ZIP Code Phon e Number [facility] [place] documented in this encounter Visit Diagnoses Diagnosis Closed fracture of left ankle with routi ne healing, subsequent encounter - Primary Closed trimalleolar fracture of left ank le, initial encounter documented in this encounter Orders Equipment Count Last Ordered Date First Ordered Date SURGICAL SHOE / POST- OP SHOE (L3260) 1 04/06/2018 documented in this encounter Care Teams Ballet Soloist Relationship Specialty Start Date End Date None, Provider PCP - General 05/09/16 11/27/19 documented as of this encounter
--- OUTSIDE RECORDS SUMMARY | 2021-12-08 11:59 | XMS_ITS | Encounter Summary ---
:1985 Author Organization [facility] Address [address] [place] [address] Care Team Providers Name Role Phone Jeanne Esparza VICE PRESIDENT SUPPL[employer] CHAIN Primary Care Provider Encounter Details Date Type Department Care Team Description 12/10/2019 Travel Social History Tobacco Use Types Packs/Day Years Used Date Current Every Day Smoker 1.5 12 Smokeless Tobacco: Never Used Alcohol Use Standard Drinks/Week Comments Yes 20 (1 standard drink = 0.6 oz pure alcoh ol) Sex Assigned at Date Recorded Not on file COVID-19 Exposure Response Date Recorded In the last month, have you been in contact with No / Unsure 12/10/2019 11:10 EDT someone who was confirmed or suspected to have Coronavirus / COVID-19? documented as of this encounter Functional Status [...] Visit Urology Mp Echeverria PA -C [address] [facility], [facility], Level 5 [place], [place] [phone] (Wo rk) documented as of this encounter Visit Diagnoses Not on filedocumented in this encounter Care Teams Lookback Coordinator Relationship Specialty Start Date End Date Jeanne Esparza NP PCP - General 11/28/19 [address] [place] [address] documented as of this encounter
--- OUTSIDE RECORDS SUMMARY | 2021-12-08 11:59 | XMS_ITS | Encounter Summary ---
:1985 Author Organization [facility] Address [address] [place] [address] Care Team Providers Name Role Phone Jeanne Esparza IRIDOLOGIST Primary Care Provider Reason for Visit Reason Comments New Patient Visit Phimosis Referral (Routine/Next Available) - Receiving Office to Obtain Authorization Specialty Diagnoses / Procedures Referred By Contact Refer red To Contact Urology Diagnoses Phimosis Cellulitis of penis Jeanne Esparza NP King, Benjamin J, MD [address] [place] [address] Proficiency, Level [address] [place] [address] Phone: Fax: Referral ID Status Reason Start Expiration Visits Visits Date Date Requested Authorized [id number] Receiving Office 1 1 to Obtain Authorization Encounter Details Date Type Department Care Team Description 12/10/2019 Office Visit [facility] Santiago Amaro MD Phimosis (Primary Dx) Urology - [address] [address] Pavilion, [place] [address] (Wo rk) Social History Tobacco [...] making decisions? documented as of this encounter Ordered Prescriptions Prescription Sig Dispensed Refills Start Date End Date betamethasone Apply twice daily 1 Tube 1 12/10/2019 04/0 03/2021 dipropionate 0.05 % cream for 2 weeks. Apply to penis in area of foreskin narrowing documented in this encounter Progress Notes Dusty Amaro MD - 12/10/2019 1130 EDT Chief Complaint: Chief Complaint Patient presents with ??? New Patient Visit Phimosis Reason for Consult: Urology was asked to see Shelley at the request of Jeanne Esparza for evaluation of phimosis. HPI: Shelley is a 34 y.o. male who presents as a new patient visit for tight painful foreskin. This has been chronic for Shelley, and mostly causes pain when he is erect and having intercourse. He is able to get the foreskin over the head of his penis, but when erect it becomes very right and painful. He has been using some prescription topical cream over the last 2 weeks with some improvement, but it isstill bothersome. He has no h/o UTI or STI. He has had no issues with voiding, denies any spraying, burning with urination or blood in his urine. He has had some blood that drips out from foreskin whenerect, which usually stops relatively quickly. He says that his genital warts have resolved with OTCmeds. Patient Active Problem List Diagnosis ??? Alcohol use disorder, severe, in early remission ([facility]) ??? Closed trimalleolar fracture of left ankle PMH PSH Past Medical History: Diagnosis Date ??? Ankle fracture ??? Joint pain ??? Joint swelling ??? Numbness No past surgical history on file. No pertinent PSurgHx Social History Family History Social History Tobacco Use ??? Smoking status: Current Every Day Smoker Packs/day: 1.50 Years: 12.00 Pack years: 18.00 ??? Smokeless tobacco: Never Used Substance Use Topics ??? Alcohol use: Yes Alcohol/week: 20.0 standard drinks Types: 20 Cans of beer per week Family History Problem Relation Age of Onset ??? Prostate Cancer Neg Hx Medications Current Outpatient Medications: ??? betamethasone dipropionate 0.05 % cream, Apply twice daily for 2 weeks. Apply to penis in area of foreskin narrowing, Disp: 1 Tube, Rfl: 1 ??? diazePAM (VALIUM) 10 mg tablet, Take 1 Tab by mouth 2 times daily. Day one and 2- 10 mg every 6 hours Day 3 and 4- 10 mg every 8 hours Day 5 and 6-10 mg twice a day Daily Max: 20 mg (Patient not taking: Reported on 03/29/2018), Disp: 18 Tab, Rfl: 0 Allergies Allergies Allergen Reactions ??? Penicillins Review of Systems: Negative for fevers, chills, chest pain , shortness of breath, nausea, joint pain, muscle pain, dysuria, numbness, change in vision, endocrine problems or skin rashes. Objective/Physical Exam: Vital Signs: There were no vitals taken for this visit. Exam: Constitutional: Alert, in no distress. Lymph: Neck supple without lymphadenopathy Respiratory: Respirations unlabored. Cardiovascular: Pulse regular. Gastrointestinal: Abdomen soft, non tender. Renal: No CVA tenderness. Genital: Uncircumcised phallus with tattoos, foreskin able to be retracted; bilateral descended testicles, non-tender without hydroceles, hernias, or masses. Musculoskeletal: Extremities warm without edema. Skin: Skin warm and dry. Assessment / Plan: Shelley Villarreal is a 34 year old male who presents as a NPV with bothersome tight foreskin with erection, despite ability to retract when flaccid. He has been using cream with some improvement. He is adamant that he does not want a circumcision, and is open to a dorsal slit if required. - Steroid cream to area - Will f/u in 2 weeks to see if improvement > if not will proceed with dorsal slit procedure Dusty Amaro MD 13:04 12/10/2019 documented in this encounter Plan of Treatment Upcoming Encounters Date Type Specialty Care Team Description 02/26/2022 Office Visit Urology Mp Echeverria PA -C [address] [facility], [facility], Level [address] [place], [place] [phone] (Wo rk) documented as of this encounter Visit Diagnoses Diagnosis Phimosis - Primary Redundant prepuce and phimosis documented in this encounter Care Teams Miller Wood Flour Relationship Specialty Start Date End Date Jeanne Esparza, ADAL PCP - General 11/28/19 [address] [place] [address] documented as of this encounter
--- OUTSIDE RECORDS SUMMARY | 2021-12-08 11:59 | XMS_ITS | Encounter Summary ---
:1985 Author Organization [facility] Address [address] [place] [address] Care Team Providers Name Role Phone Jeanne Esparza CHAR CONVEYOR TENDER CELLAR Primary Care Provider Reason for Visit Reason Onset Date Comments Follow-up 01/22/2020 Encounter Details Date Type Department Care Team Description 01/22/2020 Telephone [facility] Urology Dusty Amaro MD Follow-up - [facility] [address] [facility] [address] [place] [address] Pavilion, [place], [place] [phone] (Wo rk) Social History Tobacco Use Types [...] this encounter Miscellaneous Notes Telephone Encounter - Ching Aguirre - 01/22/2020 1354 EST Left message for pt re: cancelled Telemed phone call from 12/[address] Amaro. Requesting a call backwith an update and whether pt wants another appt. Dr. Amaro does have availability later this week for Telemed. documented in this encounter Plan of Treatment Upcoming Encounters Date Type Specialty Care Team Description 02/26/2022 Office Visit Urology Mp Echeverria PA -C [address] [facility], [facility], Level [address] [place], [place] [address] (Wo rk) documented as of this encounter Visit Diagnoses Not on filedocumented in this encounter Care Teams Trolley Car Mechanic Relationship Specialty Start Date End Date Jeanne Esparza, ADAL PCP - General 11/28/19 [address] [place] [address] documented as of this encounter
--- OUTSIDE RECORDS SUMMARY | 2021-12-08 11:59 | XMS_ITS | Encounter Summary ---
:1985 Author Organization [facility] Address [address] [place] [address] Care Team Providers Name Role Phone None, Provider Primary Care Provider Unavailable Reason for Visit Reason Comments Follow-up Left ankle fx DOI 03-29-18 Encounter Details Date Type Department Care Team Description 04/24/2018 Office Visit [facility] Ki Talamantes ed trimalleolar Orthopedic Trauma - C, fracture of left ankle Franny [address] with routine healing, [address] [employer] [place], subsequent encounter [facility] [phone] (Primary Dx) [id number] Social History Tobacco Use Types Packs/Day Years [...] as of this encounter Discharge Diagnoses Diagnosis S82.55XD Nondisplaced fracture of medial malleolus of left tibia, subsequent encounter for closed fracture with routi ne healing-S82.55XD[ICD-10-CM] S82.832D Other fracture of upper and low er end of left fibula, subsequent encounter for closed fracture with routine healing -S82.832D[ICD-10-CM] documented in this encounter Discharge Disposition Disposition Code Departure Means Destination Auto Discharge documented in this encounter Progress Notes Dahlia Ho - 04/24/2018 1100 EST As instructed, I applied a short leg weight bearing fiberglass cast with webril padding to the left lower extremity. Ki Talamantes MD was immediately available during the entire time the servicewas being provided. Materials used: 5 rolls of 3 inch fiberglass Patient Eduction Topic: Cast care and application Method: Handout and Verbal Taught to: Family and Patient Barriers: None Outcomes: verbalized understanding Dahlia Ho Ki Mitchell MD - 04/24/2018 1100 EST DATE OF INJURY: 03/29/2018. HISTORY OF PRESENT ILLNESS: Shelley Villarreal is a 32-year-old male who sustained a left trimalleolar ankle fracture who wished to pursue nonoperative management. He was placed into a cast and instructed to followup 1 week after I last saw him. The patient was lost to followup and presents today 3 weeks after seeing him last with complaints of lateral-sided ankle pain and his cast being loose. The patient states that he has been in [place] performing, has been placing full weight on the left ankle. He states that he has had no falls. He does state that the cast has been loose, but that has been mostly dueto a decrease in swelling. He states that his pain is relatively well controlled and rates it today as a 6/10. He denies falls. He has no other complaints. EXAM: The patient's cast was removed. His ankle was inspected. His skin is intact and there is no evidence of deformity. He has no tenderness to palpation over his lateral or medial malleolus. His ankle range of motion is restricted, but he can range from neutral dorsiflexion to 20 degrees of plantar flexion. He can actively flex and extend his toes. He has intact sensation throughout his foot. His foot is warm and well perfused. RADIOGRAPHS: Three view radiographs of the right ankle demonstrate a concentrically reduced tibiotalar joint. His lateral malleolus fracture has a similar amount of displacement compared to prior filmsthat now there is a significant callus formation present along the lateral and posterior cortices of the fracture. His medial malleolus fracture has not changed position. There is no evidence of worsening displacement. No other fractures are seen. ASSESSMENT AND PLAN: I told the patient that I am happy to see that there has been no displacement of his fractures and interval healing of his lateral malleolus. I think that some of his discomfort islikely due to the loose cast. The plan is to place him into a well-padded short-leg walking cast andto have him return in 2 weeks' time. At that point, I would like to remove him from his cast and repeat 3-view radiographs of the left ankle. I will likely then transition him to a walking boot and begin physical therapy. I showed the patient and his significant other today's radiographs and explainedthe plan. They are in agreement. All questions were answered. NEXT APPOINTMENT: Two weeks with 3-view radiographs of the left ankle out of his cast. documented in this encounter Plan of Treatment Upcoming Encounters Date Type Specialty Care Team Description 02/26/2022 Office Visit Urology Mp Echeverria PA -C [address] [facility], [facility], Level 5 [place], [place] [phone] (Wo rk) documented as of this encounter Visit Diagnoses Diagnosis Closed trimalleolar fracture of left ank le with routine healing, subsequent encounter - Primary documented in this encounter Care Teams Scaffold Erector Relationship Specialty Start Date End Date None, Provider PCP - General 05/09/16 11/27/19 documented as of this encounter
--- OUTSIDE RECORDS SUMMARY | 2021-12-08 11:59 | XMS_ITS | Encounter Summary ---
:1985 Author Organization [facility] Address [address] [place] [address] Care Team Providers Name Role Phone None, Provider Primary Care Provider Unavailable Reason for Referral Consult (Routine) - Authorization Not Required Specialty Diagnoses / Procedures Referred By Contact Refer red To Contact Orthopedic Surgery Diagnoses Closed bimalleolar fracture of left ankle, initial encounter Agus Jordan MD [facility] [address] [place] [address] Phone: [phone] Referral ID Status Reason Start Expiration Visits Visits Date Date Requested Authorized [id number] Authorization Specialty 03/29/2018 1 1 Not Required Services Required Question Answer Reason for Request: Fibular fracture possible bi malleolar fracture. Reason for Visit Reason Comments Joint Swelling Patient arrives with c/o sanjuana n, swelling, and bruising to left ankle s/p slip and fall on ice las t night. Affected ankle is swollen with ecchymosis surrounding later al maleolus. CSMTS grossly intact. Non weight bearing. VSS. Encounter Details Date Type Department Care Team Description 03/29/2018 Emergency [facility] Nirmal Jordan MD 111 [facility], [facility] 1 [place] [address] Closed bimalleolar Emergency Department Emergency, MD Danyel fracture of left - [facility] ankle, initial 111 [facility] encounter (Primary Dx) [place] [address] Social History Tobacco Use Types Packs/Day Years Used Date Current Every Day Smoker 1.5 12 Smokeless Tobacco: Never Used Tobacco Cessation: Ready to Quit: No; Co unseling Given: No Alcohol Use Standard Drinks/Week Comments Yes 20 (1 standard drink = 0.6 oz pure alcoh ol) Sex Assigned at Date Recorded Not on file documented as of this encounter Last Filed Vital Signs Vital Sign Reading Time Taken Comments Blood Pressure 115/88 03/29/2018 1600 EST Pulse 78 03/29/2018 1600 EST Temperature 36.5 ??C (97.7 ??F) 03/29/2018 1339 EST Respiratory Rate 17 03/29/2018 1600 EST Oxygen Saturation 100% 03/29/2018 1600 EST Inhaled Oxygen Concentration - - Weight 68.9 kg (152 lb) 03/29/2018 1339 EST Height 193 cm (6' 4) 03/29/2018 1339 EST Body Mass Index 18.5 03/29/2018 1339 EST [...] as of this encounter Discharge Diagnoses Diagnosis S82.842A Displaced bimalleolar fracture of left lower leg, initial encounter for closed fracture-S82.842A[ICD-10-CM] W00.0XXA Fall on same level due to ice a nd snow, initial encounter-W00.0XXA[ICD-10-CM] F17.200 Nicotine dependence, unspecified , uncomplicated-F17.200[ICD-10-CM] Z88.0 Allergy status to penicillin-Z88.0 [ICD-10-CM] documented in this encounter Discharge Instructions Agus Long MD - 03/29/2018 Thank you for coming to the emergency department. You have a fracture of your fibula I believe you also a fracture of the other side of your ankle which makes this possibly unstable. Please do not put any weight on this ankle. Please take ibuprofen and Tylenol for pain. We have placed a referral to orthopedic surgery you can call them for follow-up. Please return the ER for severe pain not controlledwith medication numbness weakness in her toes or any other concerns. documented in this encounter Medications at Time [...] Care documented in this encounter ED Notes Agus Jordan MD - 03/29/2018 1442 EST DOS: 03/29/2018 Chief Complaint Patient presents with ??? Joint Swelling Patient arrives with c/o pain, swelling, and bruising to left ankle s/p slip and fall on ice last night. Affected ankle is swollen with ecchymosis surrounding lateral maleolus. CSMTS grossly intact. Non weight bearing. VSS. The history is provided by the patient and medical records. I, Caitie Vaz, am scribing for Agus Jordan MD while he/she is personally performing the service. Caitie Fariasers 03/29/2018 14:42 Shelley Villarreal is a 32 y.o. male with no significant past medical history who presents with left ankle pain. The patient explains that he slipped on ice last night. He has not been able to bear weight on the ankle. He endorses left ankle pain, swelling, and bruising to the left ankle. Review of Systems Review of Systems Musculoskeletal: Positive for arthralgias (left ankle), gait problem (due to pain) and joint swelling (left ankle). Skin: Positive for color change (bruising). The patient's past medical, family and social history was reviewed and updated as needed. Allergies Allergen Reactions ??? Penicillins Vital Signs Temp: 36.5 ??C (97.7 ??F) Temp src: Oral Pulse: 84 Resp: 16 SpO2: 99 % BP: (!) 117/96 BP Device: BP Machine Patient Position: Sitting BP Cuff Location: Right arm O2 Device: None (Room air) Physical Exam Constitutional: He is oriented to person, place, and time. He appears well- developed and well-nourished. No distress. HENT: Head: Normocephalic and atraumatic. Eyes: Right eye exhibits no discharge. Left eye exhibits no discharge. No scleral icterus. Pulmonary/Chest: Effort normal. No respiratory distress. Abdominal: Soft. He exhibits no distension. Musculoskeletal: He exhibits tenderness. Bimalleolar swelling and tenderness to the left ankle. No foot tenderness. Intact range of motion ofthe toes. Foot warm and well perfused. Neurological: He is alert and oriented to person, place, and time. Skin: Skin is warm and dry. No rash noted. He is not diaphoretic. Psychiatric: He has a normal mood and affect. His behavior is normal. Nursing note and vitals reviewed. RESULTS EKG orders: None Radiology orders: ANKLE 3 OR MORE VIEWS Patient had x-rays that were obtained, reviewed, and interpreted by myself and discussed with a radiologist. Please see radiology report for further details. Procedures Final diagnoses: Closed bimalleolar fracture of left ankle, initial encounter DISPOSITION: Discharged The patient's pain was managed to an adequate level weighing risk vs. benefit of further medications. Upon departure from the Emergency Department, the patient's pain was 9 on a zero to ten scale. Any further pain treatment will be at the discretion of the provider following up with the patient based on their clinical assessment. Condition at departure from the Emergency Department: Good PCP: Provider None MDM Number of Diagnoses or Management Options Closed bimalleolar fracture of left ankle, initial encounter: Diagnosis management comments: 32-year-old male presenting with inversion injury to the ankle with severe pain and swelling. His x-rays demonstrate a transverse left fibular fracture and likely medial malleolus fracture I am concerned for instability of the medial ligament. I do not think this requires reduction in the emergency department as anatomic alignment appears okay. I did inform him that there is a possibility he would need a surgical fixation down the road. He was placed in a posterior short leg with a stirrup I advised follow-up with primary medical doctor and referral to orthopedics he is otherwise neurovascular intact return precautions were given will discharge. ED COURSE A medical screening exam was performed. The patient was a 32 year old male who presented with left ankle pain after a slip on ice. Patient had Left Ankle X- ray, which was significant for an oblique fracture of the distal fibula is seen. A transverse fracture of the medial mortice shows subtle asymmetry on AP projection, may represent ankle instability. The patient was placed in a splint and advised to follow-up with Orthopaedics. He was discharged to home. Prior to discharge usual and customary precautions were reviewed with the patient and/or family including follow-up instructions and reasons to return to the Emergency Department if condition worsens, does not improve as expected, or other new co ncerns arise. 03/29/2018 14:42 No flowsheet data found. documented in this encounter Plan of Treatment Upcoming Encounters Date Type Specialty Care Team Description 02/26/2022 Office Visit Urology Mp Echeverria PA -C 111 [facility], [facility], Level [address] [place], [place] [phone] (Wo rk) Scheduled Referrals Name Type Priority Associated Diagnoses Order S chedule AMB CONS/FOLLOW UP Outpatient Referral Routine Closed Bimalleo lar Ordered: ORTHOPEDICS Fracture Of Left 03/29/2018 Ankle, Initial Encounter documented as of this encounter Procedures Procedure Name Priority Date/Time Associated Diagnosis Comme nts ANKLE 3 OR MORE STAT 03/29/2018 13:58 Results for this VIEWS EST procedure are i n the results section. documented in this encounter Results ANKLE 3 OR MORE VIEWS (03/29/2018 13:58 EST) Anatomical Region Laterality Modality Other Specimen Narrative [facility] - 03/29/2018 16:06 EST ANKLE 3 OR MORE VIEWS ??03/29/2018 1:58 PM Clinical History/Comments: Swelling. Findings: Three-view left ankle shows medial and l ateral soft tissue swelling. An oblique fracture of the distal fibula is seen. A transverse fracture of the medial mortice shows sub tle asymmetry on AP projection, may represent ankle instabil ity. Procedure Note Antony Farfan MD - 03/29/2018 ANKLE 3 OR MORE VIEWS 03/29/2018 1:58 PM Clinical History/Comments: Swelling. Findings: Three-view left ankle shows medial and l ateral soft tissue swelling. An oblique fracture of the distal fibula is seen. A transverse fracture of the medial mortice shows sub tle asymmetry on AP projection, may represent ankle instabil ity. Performing Organization Address City/State/ZIP Code Phon e Number [facility] documented in this encounter Visit Diagnoses Diagnosis Closed bimalleolar fracture of left ankl e, initial encounter - Primary documented in this encounter Orders General Supply Count Last Ordered Date First Ordered Date ED SPLINT 1 03/29/2018 Equipment Count Last Ordered Date First Ordered Date CRUTCHES (E0114) 1 03/29/2018 documented in this encounter Care Teams Cooper Apprentice Relationship Specialty Start Date End Date None, Provider PCP - General 05/09/16 11/27/19 documented as of this encounter
--- OUTSIDE RECORDS SUMMARY | 2021-12-08 11:59 | XMS_ITS | Encounter Summary ---
:1985 Author Organization [facility] Address [address] [place] [address] Care Team Providers Name Role Phone Jeanne Esparza Ruby GALEAS Primary Care Provider Reason for Visit Reason Onset Date Comments Telemedicine Phone Call 12/11/2019 2 wk f/u Encounter Details Date Type Department Care Team Description 12/11/2019 Telephone [facility] Santiago Amaro MD Telemedicine Phone Urology - [facility] 111 [facility] Call (2 wk f/u) [address] [place] [address] [address], [place] [address] (Wo rk) Social History Tobacco Use Types [...] Miscellaneous Notes Telephone Encounter - Ching Aguirre 12/11/2019 1533 EDT Left message for pt that Dr. Amaro would like to follow-up with him in 2 weeks with a Telemed phone call. Scheduled for 12/23 @ 1:30 pm. Requesting a call back only if pt can't keep this appt. documented in this encounter Plan of Treatment Upcoming Encounters Date Type Specialty Care Team Description 02/26/2022 Office Visit Urology Mp Echeverria PA -C 111 [facility], [facility], Level [address] [place], [place] [phone] (Wo rk) documented as of this encounter Visit Diagnoses Not on filedocumented in this encounter Care Teams Transplant Nurse Relationship Specialty Start Date End Date Jeanne Esparza, LANDSCAPE ARCHITECTURE TEACHER PCP - General 11/28/19 [address] [place] [address] documented as of this encounter
--- OUTSIDE RECORDS SUMMARY | 2021-12-08 11:59 | XMS_ITS | Encounter Summary ---
:1985 Author Organization [facility] Address [address] [place] [address] Care Team Providers Name Role Phone Unknown, Provider Primary Care Provider Reason for Visit Reason Onset Date Comments Pre-procedure 11/03/2015 surgery confirmation Encounter Details Date Type Department Care Team Description 11/03/2015 Telephone [facility] Ottoniel Willard, Pre-procedure (surgery Urology - [facility] Bo blackwell MD confirmation) 111 [facility] [address] [id number] [place] [address] [facility] Level [address] [place] [address] (Wo rk) Social History Tobacco [...] Notes Telephone Encounter - Vale Puente - 11/03/2015 1420 EDT Procedure confirmed with patient. MPU 05 Case Pt was instructed to check in 3rd floor registration at 6:45 am on 11/05/15 for a procedure at 7:25 am w/ Dr Willard. Pt aware that there are no pre or post restrictions. documented in this encounter Plan of Treatment Upcoming Encounters Date Type Specialty Care Team Description 02/26/2022 Office Visit Urology Mp Echeverria PA -C 111 [facility], [facility], [facility] 5 [place], [place] [phone] (Wo rk) documented as of this encounter Visit Diagnoses Not on filedocumented in this encounter Care Teams Cisco Network Architect Relationship Specialty Start Date End Date Unknown, Provider, PCP - General 07/18/15 05/08/16 documented as of this encounter
--- OUTSIDE RECORDS SUMMARY | 2021-12-08 11:59 | XMS_ITS | Encounter Summary ---
:1985 Author Organization [facility] Address [address] [place] [address] Care Team Providers Name Role Phone None, Provider Primary Care Provider Unavailable Jeanne Esparza NP Primary Care Provider Reason for Visit Reason Onset Date Comments Establish Care 10/25/2019 Encounter Details Date Type Department Care Team Description 10/25/2019 Telephone [facility] None, Provider Establish Care [facility] - [address] [phone] Social History Tobacco Use Types Packs/Day Years [...] this encounter Miscellaneous Notes Telephone Encounter - Juliet Valenzuela - 03/06/2020 1237 EST intensive care ambulance paramedic pprwrk mailed to pt. elephone Encounter - Juliet Valenzuela - 11/17/2019 1224 EDT Pt added to intensive care ambulance paramedic wait list. elephone Encounter - Valerie Dean - 10/25/2019 1014 EDT Pt would like to be added to wait list at [facility], no specific provider o documented in this encounter Plan of Treatment Upcoming Encounters Date Type Specialty Care Team Description 02/26/2022 Office Visit Urology Mp Echeverria PA -C 111 [facility], [facility], Level [address] [place], [place] [phone] (Wo rk) documented as of this encounter Visit Diagnoses Not on filedocumented in this encounter Care Teams Factory Hand Relationship Specialty Start Date End Date None, Provider PCP - General 05/09/16 11/27/19 Jeanne Esparza, DIRECTOR OF RESERVATIONS PCP - General 11/28/19 [address] [place] [address] documented as of this encounter
--- OUTSIDE RECORDS SUMMARY | 2021-12-08 11:59 | XMS_ITS | Encounter Summary ---
:1985 Author Organization [facility] Address [address] [place] [address] Care Team Providers Name Role Phone None, Provider Primary Care Provider Unavailable Reason for Visit Reason Comments Alcohol Problem Patient states he got a DUI on Tuesday night and decided he wanted to stop drinking alcohol. Regul ar alcohol consumption 15+ beers a day. Last drink Tuesday night. Pat ient arrives nauseous and tremulous. Encounter Details Date Type Department Care Team Description 05/09/2016 Emergency [facility] David Branch MD [address] [phone] Alcohol withdrawal, Emergency Department EusebiaayLencho, PA-C [address] [phone] uncomplicated ([facility]) - [facility] EmergencyDanyel MD (Primary Dx) [address] [place] [address] Social History Tobacco Use Types Packs/Day Years Used Date Current Every Day Smoker 1 Alcohol Use Standard Drinks/Week Comments Yes 20 (1 standard drink = 0.6 oz pure alcoh ol) Sex Assigned at Date Recorded Not on file documented as of this encounter Last Filed Vital Signs Vital Sign Reading Time Taken Comments Blood Pressure 127/78 05/09/2016 1248 EDT Pulse 89 05/09/2016 1248 EDT Temperature 37.2 ??C (99 ??F) 05/09/2016 1102 EDT Respiratory Rate 16 05/09/2016 1248 EDT Oxygen Saturation 100% 05/09/2016 1248 EDT Inhaled Oxygen Concentration - - Weight 71.7 kg (158 lb) 05/09/2016 1100 EDT Height - - Body Mass Index 19.23 09/16/2015 0940 EDT documented in this encounter Functional Status [...] as of this encounter Discharge Diagnoses Diagnosis F10.231 Alcohol dependence with withdraw al delirium-F10.231[ICD-10-CM] Z88.0 Allergy status to penicillin-Z88.0 [ICD-10-CM] F17.210 Nicotine dependence, cigarettes, uncomplicated-F17.210[ICD-10-CM] documented in this encounter Discharge Instructions InstructionsDeLencho lopez PA - 05/09/2016 Recommend that you try the Valium for withdrawal symptoms otherwise strongly recommend in inpatient setting such as Act I the number for Act I is [phone]. Valium should be used 10 mg every 6 hours forthe first 2 days followed by 10 mg every 8 hours for the next 2 days and 10 mg twice a day for the last 2 days. If symptoms are uncontrolled with the Valium recommend reevaluation in the ER for possible Act I admission AttachmentsThe following attachments cannot be sent through Care Everywhere. ALCOHOL DETOXIFICATION AND WITHDRAWAL ([place])documented in this encounter Medications at Time of [...] 20 mg documented as of this encounter Ordered Prescriptions [...] a day Daily Max: 20 mg documented in this encounter Discharge Disposition Disposition Code Departure Means Destination Home or Self Care Car Home documented in this encounter ED Notes Tamiko Kong RN - 05/09/2016 1249 EDT Pt and appear strong in the desire to keep pt on track for success with ETOH detox. Pt given [facility] number and advised to call them Tuesday for support in this process. Lencho Hardy PA - 05/09/2016 1237 EDT DOS: 05/09/2016 Chief Complaint Patient presents with ??? Alcohol Problem Patient states he got a DUI on Tuesday night and decided he wanted to stop drinking alcohol. Regularalcohol consumption 15+ beers a day. Last drink Tuesday night. Patient arrives nauseous and tremulous. HPI The patient is a 30 y.o. male who presents today with Alcohol Problem (Patient states he got a DUI on Tuesday night and decided he wanted to stop drinking alcohol. Regular alcohol consumption 15+ beers a day. Last drink Tuesday night. Patient arrives nauseous and tremulous. ) HPI Comments: 30-year-old male with long history of alcohol abuse is here stating that he wants to quit alcohol. Patient had a DWI 2 days ago and has since completely quit alcohol. He had a difficult night last night due to anxiety as well as tremors and nausea. He arrives with his who is reasonab le and appears to want to really help him quit drinking. 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 At this time due to legal issues with the DWI he does not want to commit to inpatient but states that he may consider. The history is provided by the patient. Alcohol Problem Associated symptoms: no abdominal pain, no confusion, no headaches, no palpitations, no seizures, noshortness of breath and no weakness Review of Systems Review of Systems Constitutional: Negative for chills, diaphoresis, fatigue and fever. HENT: Negative for congestion, sore throat and trouble swallowing. Eyes: Negative. Respiratory: Negative for chest tightness and shortness of breath. Cardiovascular: Negative. Negative for chest pain, palpitations and leg swelling. Gastrointestinal: Negative for abdominal distention and abdominal pain. Endocrine: Negative. Genitourinary: Negative. Negative for dysuria and flank pain. Musculoskeletal: Negative. Negative for arthralgias, back pain, gait problem, myalgias, neck pain and neck stiffness. Skin: Negative. Negative for color change and rash. Allergic/Immunologic: Negative. Negative for immunocompromised state. Neurological: Positive for tremors. Negative for dizziness, seizures, syncope, speech difficulty, weakness, light-headedness, numbness and headaches. Hematological: Negative. Negative for adenopathy. Does not bruise/bleed easily. Psychiatric/Behavioral: Negative. Negative for confusion. All other systems reviewed and are negative. The patient's past medical, family and social history was reviewed and updated as needed. Allergies Allergen Reactions ??? Penicillins Vital Signs Temp: 37.2 ??C (99 ??F) Temp src: Tympanic Pulse: 92 Resp: 18 SpO2: 100 % BP: 126/88 BP Device: BP Machine Patient Position: Sitting BP Cuff Location: Right arm O2 Device: None (Room air) Physical Exam Constitutional: He appears well-developed and well-nourished. HENT: Head: Normocephalic and atraumatic. Right Ear: External ear normal. Left Ear: External ear normal. Nose: Nose normal. Eyes: Pupils are equal, round, and reactive to light. Right eye exhibits no discharge. Left eye exhibits no discharge. Neck: Normal range of motion. Neck supple. No tracheal deviation present. Cardiovascular: Normal rate, regular rhythm and normal heart sounds. Pulmonary/Chest: Effort normal and breath sounds normal. No respiratory distress. He has no wheezes.He has no rales. Abdominal: Soft. He exhibits no distension. There is no tenderness. There is no rebound and no guarding. Musculoskeletal: Normal range of motion. He exhibits no edema or deformity. Neurological: He is alert. He has normal strength. He is not disoriented. No cranial nerve deficit or sensory deficit. Coordination normal. Bilateral mild hand tremors Skin: Skin is warm and dry. No rash noted. Psychiatric: He has a normal mood and affect. His behavior is normal. Thought content normal. Nursing note and vitals reviewed. RESULTS EKG orders: None Radiology orders: None ED Lab Results Labs Reviewed - No data to display Relevant Data Procedures ED COURSE A medical screening exam was performed. I had over 15 minutes discussion with both the patient and his regarding withdrawal symptoms and also discussed that typically do not prescribe the benzodiazepine for self withdrawal symptoms. The states that she will hold all the medications and will give them as prescribed he also discussed that if this is unsuccessful the patient will need inpatient [facility] if he is to continue trying to quit alcohol ASSESSMENT AND PLAN Final diagnoses: Alcohol withdrawal, uncomplicated ED Current Prescriptions Medication Dispense Auth. Provider diazePAM (VALIUM) 10 mg tablet 18 Tab Lencho Barcenas PA DISPOSITION: Discharged The patient's pain was managed to an adequate level weighing risk vs. benefit of further medications. Upon departure from the Emergency Department, the patient's pain was 2 on a zero to ten scale. Condition at departure from the Emergency Department: Good PCP: Provider None TR Soto was available for supervision. 05/09/2016 12:43 No flowsheet data found. documented in this encounter Plan of Treatment Upcoming Encounters Date Type Specialty Care Team Description 02/26/2022 Office Visit Urology Mp Echeverria PA -C [address] [place] [address], [address] [place], [place] [phone] (Wo rk) documented as of this encounter Visit Diagnoses Diagnosis Alcohol withdrawal, uncomplicated (HCC) - Primary documented in this encounter Care Teams Factory Supervisor Relationship Specialty Start Date End Date None, Provider PCP - General 05/09/16 11/27/19 documented as of this encounter
--- OUTSIDE RECORDS SUMMARY | 2021-12-08 11:59 | XMS_ITS | Encounter Summary ---
:1985 Author Organization [facility] Address [address] [place] [address] Care Team Providers Name Role Phone None, Provider Primary Care Provider Unavailable Encounter Details Date Type Department Care Team Description 04/20/2018 Abstract [facility] Jomar Brunner LPN Orthopedic Trauma - [facility] [address] [facility] [address] [place] [address] [place], [place] [address] Social History Tobacco Use Types Packs/Day Years [...] Visit Urology Mp Echeverria PA -C [address] [facility], [address], Level 5 [place], [place] [phone] (Wo rk) documented as of this encounter Visit Diagnoses Not on filedocumented in this encounter Care Teams Cotton Ginner Helper Relationship Specialty Start Date End Date None, Provider PCP - General 05/09/16 11/27/19 documented as of this encounter
--- OUTSIDE RECORDS SUMMARY | 2021-12-08 11:59 | XMS_ITS | Encounter Summary ---
:1985 Author Organization [facility] Address [address] [place] [address] Care Team Providers Name Role Phone Jeanne Esparza PELT INSPECTOR Primary Care Provider Encounter Details Date Type Department Care Team Description 05/03/2020 Results Only [facility] - [facility] Dusty Clement MD Lab - [facility] [address] [facility] [address] [place] [address] [place] [address] [phone] Social History Tobacco Use Types Packs/Day Years [...] Visit Urology Mp Echeverria PA -C 111 [facility], [address] [place], [address] 5 [place], [place] [address] (Wo rk) documented as of this encounter Procedures Procedure Name Priority Date/Time Associated Comments Diagnosis FLU/COVID JEREMIAH(FLUVID) Routine 05/03/2020 20:53 Re sults for this EST procedure are i n the results section. COMPLETE BLOOD COUNT Routine 05/03/2020 17:40 Res ults for this WITH DIFFERENTIAL EST procedure are in (AUTO) the results section. THYROID CASCADE Routine 05/03/2020 17:40 Results for this EST procedure are i n the results section. T4 FREE Routine 05/03/2020 17:40 Results for this EST procedure are i n the results section. ETHYL ALCOHOL - [facility] Routine 05/03/2020 17:39 Res ults for this EST procedure are i n the results section. LIPASE - CV Routine 05/03/2020 17:39 Results fo r this EST procedure are i n the results section. COMPREHENSIVE Routine 05/03/2020 17:39 Results fo r this METABOLIC PANEL (CMP) EST proced ure are in the results section. documented in this encounter Results FLU/COVID JEREMIAH(FLUVID) (05/03/2020 20:53 EST) SARS-CoV-2 RT-PCR Not Detected [facility] Comment: [facility] This assay is designed to detect the RNA of SARS-CoV-2 using nucleic acid amplification. ??A Not Detected result do es not preclude the possibility of SARS-CoV-2 infection since the adequacy of sample collection and/or low viral burden may result in the presence of viral nucleic acids below th e analytical sensitivity of this test method. ??Test res ults should not be used as the sole basis for treatment or other management decisions and must be used with other clini fay, epidemiological and laboratory data in making the diag nosis. This test has not been FDA cleared or approved. ??This test has been authorized by FDA under an EUA for use by authorized laboratories. ??This test has been authoriz ed only for detection of nucleic acid from 2019-nCoV, not for any other viruses or pathogens. ??This test is only author ized for the duration of the declaration that circumstances exist justifying the authorization of emergency use of in vi tro diagnostic tests for detection and / or diagnosis of 2019-nCoV under section 564(b) (1) of Act, 21 U.S.C 360bbb-3(b)(1) unless the authorization is terminated or revoked sooner. Performed on the µ-[employer] GeneXpert Instrument at [facility] [address] INFLUENZA A PCR - Negative [facility] INFLUENZA B PCR - Negative [facility] RSV PCR - [facility] Negative [facility] Specimen Narrative [facility] - 021 22:00 EST FLUVID PATIENT STATUS: A [facility] 1 FLUVID Performing Organization Address City/State/ZIP Code Phon e Number [facility] [address] [place] [address] (ABNORMAL) THYROID CASCADE (05/03/2020 17:40 EST) Pathologist Sig nature TSH 6.55 (H) 0.46 - 4.68 uIU/mL [facility] Specimen Performing Organization Address City/[facility]/ZIP Code Phon e Number [facility] [address] [place] [address] T4 FREE (05/03/2020 17:40 EST) Pathologist Sig nature FREE T4 - [facility] 0.81 0.78 - 2.19 ng/dl [facility] Specimen Performing Organization Address City/[facility]/ZIP Code Phon e Number [facility] [address] [place] [address] (ABNORMAL) COMPLETE BLOOD COUNT WITH DIFFERENTIAL (AUTO) (05/03/2020 17:40 EST) ABSOLUTE NEUTROPHIL 7.2 2.2 - 8.85 [facility] COUN - MC 10e3/uL [facility] BASO # - [facility] 0.06 0.01 - 0.11 [facility] 10e/uL [facility] BASO % - [facility] 1 0 - 2 % [facility] EOS # - [facility] 0.02 (L) 0.03 - 0.61 [facility] 10e3/ul [facility] EOS % - [facility] 0 0 - 5 % [facility] GRAN % - [facility] 79.5 40 - 80 % [facility] HEMATOCRIT - [facility] 41.5 39.5 - 50.2 % [facility] HEMOGLOBIN - [facility] 14.5 13.8 - 17.3 [facility] g/dl [facility] IG# - [facility] 0.07 0 - 0.7 [facility] 10e3/uL [facility] IG% - [facility] 0.8 0 - 0.9 % [facility] LYMPH # - [facility] 0.9 (L) 1.09 - 3.3 [facility] 10e3/ul [facility] LYMPH% - [facility] 10.4 (L) 20 - 40 % [facility] MEAN CORPUSCULAR HGB 35.3 (H) 27.6 - 33.0 [facility] pg [facility] MEAN CORPUSCULAR HGB 34.9 32.8 - 36.4 [facility] CONC - [facility] g/dL [facility] MEAN CELL VOLUME - 101.0 (H) 81 - 95 fl [facility] MONO # - [facility] 0.8 0.1 - 0.8 [facility] 10e3/uL [facility] MONO% - [facility] 8.4 0 - 12 % [facility] PLATELET COUNT 111 (L)Comment: 141 - 377 [facility] CHECKED 10e3/ul [facility] RED BLOOD COUNT - 4.11 (L) 4.36 - 5.78 [facility] 10e6/ul [facility] RED CELL DISTRI 11.5 <14.2 % [facility] WIDTH - [facility] WHITE BLOOD COUNT - 9.0 4.0 - 10.4 [facility] 10e3/ul [facility] Specimen Performing Organization Address City/[facility]/ZIP Code Phon e Number [facility] [address] [place] [address] LIPASE - [facility] (05/03/2020 17:39 EST) Pathologist Sig nature LIPASE SERPL-CCNC - [facility] 147 <251 U/L [facility] Specimen Performing Organization Address City/[facility]/ZIP Code Phon e Number [facility] [address] [place] [address] ETHYL ALCOHOL - [facility] (05/03/2020 17:39 EST) Pathologist Sig nature ETHYL ALCOHOL - [facility] <10.0 <10 mg/dL [facility] Specimen Performing Organization Address City/[facility]/ZIP Code Phon e Number [facility] [address] [place] [address] (ABNORMAL) COMPREHENSIVE METABOLIC PANEL (CMP) (05/03/2020 17:39 EST) ALBUMIN - [facility] 4.6 3.4 - 4.9 [facility] g/dL [facility] ALKALINE 100 38 - 126 U/L [facility] PHOSPHATASE - [facility] BILIRUBIN TOTAL 1.2 0.2 - 1.3 [facility] mg/dL [facility] BUN - [facility] 5 (L) 10 - 26 mg/dL [facility] CALCIUM - [facility] 9.6 8.5 - 10.5 [facility] mg/dL [facility] Chloride 95 (L) 96 - 110 [facility] mmol/L [facility] CO2 Total 26 21 - 32 mEq/L [facility] CREATININE 0.79 0.66 - 1.25 [facility] mg/dL [facility] eGFR >60 [facility] Comment: [facility] Chronic renal impairment is defined as GFR <60 Multiply result by 1.210 for patients . Anion Gap 12 0 - 18 [facility] GLUCOSE - [facility] 104 (H) 70 - 100 [facility] mg/dL [facility] Potassium 3.8 3.5 - 5.0 [facility] mEq/L [facility] Sodium 133 (L) 136 - 145 [facility] mEq/L [facility] TOTAL PROTEIN - 7.7 6.2 - 8.2 [facility] gm/dL [facility] SGOT/AST - [facility] 109 (H) 17 - 59 U/L [facility] SGPT/ALT - [facility] 57 (H) 0 - 50 U/L [facility] Specimen Performing Organization Address City/State/ZIP Code Phon e Number [facility] [address] [place] [address] documented in this encounter Visit Diagnoses Not on filedocumented in this encounter Care Teams Quality Assurance Project Manager Relationship Specialty Start Date End Date Jeanne Esparza NP PCP - General 11/28/19 [address] [place] [address] documented as of this encounter
--- OUTSIDE RECORDS SUMMARY | 2021-12-08 11:59 | XMS_ITS | Encounter Summary ---
:1985 Author Organization [facility] Address [address] [place] [address] Care Team Providers Name Role Phone None, Provider Primary Care Provider Unavailable Encounter Details Date Type Department Care Team Description 04/03/2018 Travel Social History Tobacco Use Types Packs/Day [...] Visit Urology Mp Echeverria PA -C [address] [place] [address] [facility], [facility], Level [address] [place], [place] [phone] (Wo rk) documented as of this encounter Visit Diagnoses Not on filedocumented in this encounter Care Teams Esthetician/Owner Relationship Specialty Start Date End Date None, Provider PCP - General 05/09/16 11/27/19 documented as of this encounter
--- OUTSIDE RECORDS SUMMARY | 2021-12-08 11:59 | XMS_ITS | Encounter Summary ---
:1985 Author Organization [facility] Address [address] [place] [address] Care Team Providers Name Role Phone Unavailable Primary Care Provider Unavailable Encounter Details Date Type Department Care Team Description 01/20/2006 Hospital Encounter [facility] - Shiela Cottrell NP [employer] [address] [place] [phone] (Wo rk) Social History Tobacco Use Types Packs/Day Years Used Date Never Assessed Sex Assigned at Date Recorded Not on file documented as of this encounter Discharge Disposition Disposition Code Departure Means Destination Auto Discharge documented in this encounter Plan of Treatment Upcoming Encounters Date Type Specialty Care Team Description 02/26/2022 Office Visit Urology Mp Echeverria PA -C [address] [facility], [address] [place], [place] [phone] (Wo rk) documented as of this encounter Procedures Procedure Name Priority Date/Time Associated Comments Diagnosis HELICOBACTER PYLORI Routine 01/20/2006 15:49 Resu lts for this IGG ANTIBODY EST procedure are i n the results section. COMPLETE BLOOD COUNT Routine 01/20/2006 15:49 Res ults for this EST procedure are i n the results section. documented in this encounter Results HELICOBACTER PYLORI IGG ANTIBODY (01/20/2006 15:49 EST) Pathologist Sig nature H Pylori IgG <0.4 U/mL [facility] Comment: Interpretation: ??Negative Negative is <0.9 U/mL Assayed utilizing the [facility] Immulite 2500. Values may vary with other methods. Specimen Performing Organization Address [facility] Phon e Number [facility] [address] [place] [address] SERVICES [facility] [address] [place] [address] HEMAGRAM (01/20/2006 15:49 EST) Pathologist Sig nature WBC 5.57 4.0 - 10.4 K/cmm [facility] RBC 4.65 4.36 - 5.78 M/cmm [facility] Hemoglobin 14.4 13.8 - 17.3 gm/dl [facility] HCT 41.2 39.5 - 50.2 % [facility] MCV 89 81 - 95 fl [facility] MCH 31.0 27.6 - 33.0 pg [facility] MCHC 35.0 32.8 - 36.4 gm/dl [facility] PLT 165 141 - 320 K/cmm [facility] RDW-CV 12.9 11.8 - 14.1 % [facility] Specimen Performing Organization Address City/[facility] Phon e Number [facility] [address] [place] [address] SERVICES [facility] [address] [place] [address] documented in this encounter Visit Diagnoses Not on filedocumented in this encounter
--- OUTSIDE RECORDS SUMMARY | 2021-12-08 11:59 | XMS_ITS | Encounter Summary ---
:1985 Author Organization [facility] Address [address] [place] [address] Care Team Providers Name Role Phone None, Provider Primary Care Provider Unavailable Encounter Details Date Type Department Care Team Description 05/03/2018 Orders Only [facility] Ki Talamantes ed trimalleolar Orthopedic Trauma - C, fracture of left ankle Franny [address] with routine healing, [address] [place], subsequent encounter So [facility] [phone] (Primary Dx) [phone] Social History Tobacco Use Types Packs/Day Years [...] Visit Urology Mp Echeverria PA -C [address] [place], [facility], Level 5 [place], [place] [address] (Wo rk) documented as of this encounter Visit Diagnoses Diagnosis Closed trimalleolar fracture of left ank le with routine healing, subsequent encounter - Primary documented in this encounter Care Teams Contract Forester Relationship Specialty Start Date End Date None, Provider PCP - General 05/09/16 11/27/19 documented as of this encounter
--- OUTSIDE RECORDS SUMMARY | 2021-12-08 11:59 | XMS_ITS | Encounter Summary ---
:1985 Author Organization [facility] Address [address] [place] [address] Care Team Providers Name Role Phone None, Provider Primary Care Provider Unavailable Reason for Referral (Other (Specify in Question)) - Closed Specialty Diagnoses / Procedures Referred By Contact Refer red To Contact Diagnoses Closed trimalleolar fracture of left ankle with routine healing, subsequent encounter Ki Talamantes MD Procedures ANKLE 3 OR MORE VIEWS [address] [place] [address] Referral ID Status Reason Start Date Expiration Date Visits Requ ested Visits Authorized [id number] Closed 04/24/2018 1 1 Encounter Details Date Type Department Care Team Description 04/24/2018 Orders Only [facility] Ki Talamantes ed trimalleolar Orthopedic Trauma - MD Sathish fracture of left ankle Franny [address] with routine healing, [address] [place], subsequent encounter So [facility] [phone] (Primary Dx) [id number] Social History Tobacco Use [...] Visit Urology Mp Echeverria PA -C [address] [place] [address] [facility], [facility], Level 5 [place] [phone] (Wo rk) documented as of this encounter Procedures Procedure Name Priority Date/Time Associated Diagnosis Comme nts ANKLE 3 OR MORE Routine 04/24/2018 11:50 Closed trimalleolar R esults for this VIEWS EST fracture of left procedure a re in ankle with routine the resul ts healing, subsequent section. encounter documented in this encounter Results ANKLE 3 OR MORE VIEWS (04/24/2018 11:50 EST) Anatomical Region Laterality Modality Other Specimen Narrative [facility] - 04/24/2018 16:53 EST HISTORY: ?? S82.852D-Displaced trimalleolar fracture of left lower leg, subsequent encounter for closed fracture with routine [id number]; Left ankle fx COMPARISON: April 06, 2018 EXAM: ANKLE 3 OR MORE VIEWS ??04/24/2018 11:50 A M TECHNIQUE: Left ankle 3 nonweightbearing views FINDINGS / IMPRESSION: There is evidence for a small amount of ongoing, but not yet complete healing of a nondisplaced fract ure of the medial tibial malleolus and mildly displaced oblique f racture of the distal fibula in grossly unchanged alignment compared to the prior. There is residual soft tissue swelling noted abou t the ankle. There is osteopenia, likely related to disuse. De generative changes appear similar relative to the prior study. Red emonstration of an osseous excrescence projecting from the dorsal a spect of the talar neck region, a nonspecific finding could be d egenerative or enthesopathic in nature or alternatively this could re flect talar beaking, a finding that can be seen in the setting of tarsal coalition. Recommend clinical correlation and atten tion on follow-up. If indicated CT imaging can be arranged for further evaluation. Procedure Note Brandon Leiva MD - 04/24/2018 HISTORY: S82.852D-Displaced trimalleolar fracture of left lower leg, subsequent encounter for closed fracture with routine [id number]; Left ankle fx COMPARISON: April 06, 2018 EXAM: ANKLE 3 OR MORE VIEWS 04/24/2018 11:50 AM TECHNIQUE: Left ankle 3 nonweightbearing views FINDINGS / IMPRESSION: There is evidence for a small amount of ongoing, but not yet complete healing of a nondisplaced fract ure of the medial tibial malleolus and mildly displaced oblique f racture of the distal fibula in grossly unchanged alignment compared to the prior. There is residual soft tissue swelling noted abou t the ankle. There is osteopenia, likely related to disuse. De generative changes appear similar relative to the prior study. Red emonstration of an osseous excrescence projecting from the dorsal a spect of the talar neck region, a nonspecific finding could be d egenerative or enthesopathic in nature or alternatively this could re flect talar beaking, a finding that can be seen in the setting of tarsal coalition. Recommend clinical correlation and atten tion on follow-up. If indicated CT imaging can be arranged for further evaluation. Performing Organization Address City/State/ZIP Code Phon e Number [facility] [place] documented in this encounter Visit Diagnoses Diagnosis Closed trimalleolar fracture of left ank le with routine healing, subsequent encounter - Primary documented in this encounter Care Teams Portable Grinding Machine Operator Relationship Specialty Start Date End Date None, Provider PCP - General 05/09/16 11/27/19 documented as of this encounter
--- OUTSIDE RECORDS SUMMARY | 2021-12-08 11:59 | XMS_ITS | Encounter Summary ---
:1985 Author Organization [facility] Address [address] [place] [address] Care Team Providers Name Role Phone Isaias Jeanne Beltran GLASS LINED TANK REPAIRER Primary Care Provider Reason for Visit Reason Onset Date Comments Appointment Related 11/28/2019 Encounter Details Date Type Department Care Team Description 11/28/2019 Telephone [facility] Santiago Amaro MD Appointment Related Urology - [facility] [address] [address] [address], [place] [phone] (Wo rk) Social History Tobacco Use Types [...] Notes Telephone Encounter - Ching Aguirre - 11/28/2019 1023 EDT Per message from Dr. Amaro, PCP Jeanne Esparza contacted bulk station agent provider requesting urgent appt for pt for phimosis. Spoke with pt, scheduled NPV with Dr. Amaro on 12/09 @ 11:30 am. Provided detailed instructions and directions to the office. Pt confirmed. documented in this encounter Plan of Treatment Upcoming Encounters Date Type Specialty Care Team Description 02/26/2022 Office Visit Urology Mp Echeverria PA -C 111 [facility], [facility], [address] [place], [place] [phone] (Wo rk) documented as of this encounter Visit Diagnoses Not on filedocumented in this encounter Care Teams Crossbow Maker Relationship Specialty Start Date End Date Jeanne Esparza, ADAL PCP - General 11/28/19 [address] [place] [address] documented as of this encounter
--- OUTSIDE RECORDS SUMMARY | 2021-12-08 11:59 | XMS_ITS | Encounter Summary ---
:1985 Author Organization [facility] Address [address] [place] [address] Care Team Providers Name Role Phone Unknown, Provider Primary Care Provider Reason for Visit Reason Comments Pre-Vasectomy Vasectomy Consult Consult (Routine) - Closed Specialty Diagnoses / Procedures Referred By Contact Refer red To Contact Urology Diagnoses Vasectomy evaluation Self, Referral [facility] [address] [place] [address] 0 540 Phone: Fax: Referral ID Status Reason Start Date Expiration Date Visits Requ ested Visits Authorized [id number] Closed 1 1 Encounter Details Date Type Department Care Team Description 09/16/2015 Office Visit [facility] Ottoniel Willard for sterilization (Primary Dx); Urology - Jose Bernal MD [id number] [place] [address] [place], [address] [place] [address] (Wo rk) Social History Tobacco Use Types Packs/Day Years Used Date Current Every Day Smoker 1 Alcohol Use Standard Drinks/Week Comments Yes 20 (1 standard drink = 0.6 oz pure alcoh ol) Sex Assigned at Date Recorded Not on file documented as of this encounter Last Filed Vital Signs Vital Sign Reading Time Taken Comments Blood Pressure 120/72 09/16/2015 0940 EDT Pulse 68 09/16/2015 0940 EDT Temperature - - Respiratory Rate 16 09/16/2015 0940 EDT Oxygen Saturation - - Inhaled Oxygen Concentration - - Weight 74.8 kg (165 lb) 09/16/2015 0940 EDT Height 193 cm (6' 4) 09/16/2015 0940 EDT Body Mass Index 20.08 09/16/2015 0940 EDT documented in this encounter [...] making decisions? documented as of this encounter Progress Notes Ottoniel Willard MD - 09/16/2015 0959 EDT Chief Complaint: Chief Complaint Patient presents with ??? Pre-Vasectomy Vasectomy Consult Reason for Consult: Urology was asked to see Shelley in consultation at the request of Doctor Donavan for evaluation of undesired fertility. HPI: Shelley is a 30 y.o. male with a 6 week old child. He understands vasectomy is a permanent procedure. He is currently using nothing currently for contraception. He denies any fertility problems. There is no problem list on file for this patient. PMH PSH History reviewed. No pertinent past medical history. History reviewed. No pertinent past surgical history. Social History Family History History Substance Use Topics ??? Smoking status: Current Every Day Smoker -- 1.00 packs/day ??? Smokeless tobacco: Not on file ??? Alcohol Use: 12.0 oz/week 20 Cans of beer per week Family History Problem Relation Age of Onset ??? Prostate Cancer Neg Hx Medications No current outpatient prescriptions on file. Allergies Allergies Allergen Reactions ??? 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 Review of Systems: Negative for fevers, chills, chest pain, shortness of breath, nausea, joint pain, muscle pain, dysuria, numbness, change in vision, endocrine problems or skin rashes. Objective/Physical Exam: Vital Signs: BP 120/72 mmHg Pulse 68 Resp 16 Ht 193 cm (76) Wt 74.844 kg (165 lb) BMI 20.09 kg/m2 Exam: Constitutional: Alert, in no distress. Lymph: Neck supple without lymphadenopathy Respiratory: Respirations unlabored. Cardiovascular: Pulse regular. Gastrointestinal: Abdomen soft, non tender. Renal: No CVA tenderness. Genital: Uncircumcised phallus with patent meatus at the tip. Testes descended bilaterally without masses. Vasa palpable bilaterally without discomfort. There are 9 condyloma over the base of the penisextending to the right side, the largest of which is about 1.5 cm. Musculoskeletal: Extremities warm without edema. Skin: Skin warm and dry. Impression: 30 y.o. man with undesired fertility. We discussed the risks of vasectomy including bleeding, infection, failure of the procedure and chronic scrotal pain. He was provided with information about sperm cryopreservation. We stressed the permanent nature of this procedure and the need for an alternate method of contraception until azoospermia has been confirmed on semen analysis to be done 12 weeks after the procedure. Suggestions/Recommendations: He would like to have the condyloma resected at the time of vasectomy, which I believe is reasonable. We will plan to perform both procedures with local anesthesia in a procedure room. Thank you for consulting us in the care of Shelley Leggett Phil. We will, of course, continue to keep you informed of the patient's urological care and the results of our further evaluation. Ottoniel Willard MD documented in this encounter Plan of Treatment Upcoming Encounters Date Type Specialty Care Team Description 02/26/2022 Office Visit Urology Mp Echeverria PA -C [address] [facility], [address] [place], [place] [address] (Wo rk) documented as of this encounter Visit Diagnoses Diagnosis Encounter for sterilization - Primary Sterilization Condyloma Condyloma acuminatum documented in this encounter Care Teams Rehabilitation Therapy Aide Relationship Specialty Start Date End Date Unknown, Provider, PCP - General 07/18/15 05/08/16 documented as of this encounter
== END ==
PROVIDERS: PCP Otolaryngology; Visit Provider Nurse Practitioner Family
DX: S92.321A Displaced fracture of second metatarsal bone, right foot, initial encounter for closed fracture (principal); X58.XXXA Exposure to other specified factors, initial encounter
CPT/HCPCS: 73630